=== PATIENT | female | born 1960 | race Caucasian/White ===

== ENCOUNTER 2019-02-17 09:37 | Observation (INO) | payer OTHER ==
[2019-02-17] MEDS ORDERED: Phenergan 25 MG INJ IV PRN (10:40)
[2019-02-17] MEDS ORDERED: Sodium Chloride 0.9% 1000 ML 1,000 ML IV STA (10:40)
--- NOTE | 2019-02-17 10:44 | PCM.HP.ADD ---
Addendum to History & Physical - History & Physical Addendum Addendum to History & Physical: This certifies that the History & Physical in the electronic chart reflects the current health status of the patient. If there are changes in the H&P these changes/exceptions are listed as follows.
[2019-02-17] MEDS: Sodium Chloride 0.9% 1000 ML 1,000 ML IV SCH (11:58)
[2019-02-17] MEDS: ROCEPHIN 1 Gm-D5w 50 ml Bag** 1 G/50 ML IVPB IV SCH (11:58)
--- NOTE | 2019-02-17 12:21 | XRAY ---
Indication: Dizziness and vertigo. Comparison: None PA/lateral chest demonstrates lingula infiltrate/atelectasis. Remaining heart and right lung normal. Bony thorax intact with mild degenerative changes and old right 5 rib fracture.
[2019-02-17] MEDS: TYLENOL 325 MG PO PRN (12:30)
[2019-02-17] MEDS: Zithromax 500 MG/ 250 ML NaCl Premix 500 MG/250 ML IVPB IV SCH (12:31)
[2019-02-17 12:40] LABS: Absolute Neutrophil Ct (ANC) 5.53 (1.4-6.9); BASOPHIL % 0.4 % (0.0-0.4); Basophil (Absolute #) 0.03 (0-0.4); Eosinophil % 0.4 % (0.00-5.0); Eosinophil (Absolute #) 0.03 (0-0.5); Hematocrit 40.8 % (35-47); Hemoglobin 13.8 gm/dl (12.0-16.0); Lymphocyte (Absolute #) 1.39 (1.0-4.6); Lymphocytes % 19.1 % (24.0-44.0); Mean Cell Volume 95.1 fl (78-100); Mean Corpuscular Hemoglobin 32.2 pg (26-32); Mean Corpuscular Hgb Concent. 33.8 g/dl (32-36); Mean Platelet Volume 9.6 fl (6-9.5); Monocyte (Absolute #) 0.29 (0.0-1.3); Neutrophil % 76.1 % (36.0-66.0); Platelet Count 269 K/mm3 (150-450); Red Blood Count 4.29 M/mm3 (4.1-5.4); Red Cell Distribution Width 12.7 % (11.5-14.0); White Blood Count 7.3 K/mm3 (4.0-10.5)
[2019-02-17 12:51] LABS: ALBUMIN 4.6 g/dL (3.5-5.0); ALKALINE PHOSPHATASE 74 U/L (38-126); BLOOD UREA NITROGEN 11 mg/dL (7-17); CHLORIDE 108 mmol/L (98-107); Calcium 10.1 mg/dL (8.4-10.2); Carbon Dioxide 28 mmol/L (22-30); Creatinine 1 0.64 mg/dL (0.52-1.04); Glucose 117 mg/dL (74-106); NT PRO BNP 201 pg/mL (0-900); Potassium 4.1 mmol/L (3.5-5.1); SGOT/AST 23 U/L (14-36); SGPT/ALT 15 U/L (0-35); SODIUM 144 mmol/L (137-145); Total Protein 8.4 g/dL (6.3-8.2)
[2019-02-17] MEDS ORDERED: PROVENTIL 2.5 MG/3 ML NEB IH PRN (14:31)
[2019-02-17] MEDS ORDERED: MEDICATION INTERVENTION PO SCH (14:45)
[2019-02-17] MEDS: ECOTRIN 81 MG PO SCH (15:16)
[2019-02-17] MEDS: Protonix 40MG Tablet PO SCH (15:16)
[2019-02-17] MEDS: VITAMIN D PO SCH (15:16)
[2019-02-17] MEDS: MOTRIN 400 MG PO SCH (15:17)
[2019-02-17] MEDS: Spiriva 18 Mcg/Cap Inhaler IH SCH (17:47)
[2019-02-17 18:01] LABS: Appearance CLEAR (CLEAR); Bilirubin NEGATIVE (NEGATIVE); Blood NEGATIVE Ery/ul (0-5); Epithelial Cells RARE /HPF (FEW); Glucose NEGATIVE (NEGATIVE); Ketones NEGATIVE (NEGATIVE); Leukocyte Esterase NEGATIVE (NEGATIVE); Mucus SLIGHT /HPF (NEGATIVE); Nitrite NEGATIVE (NEGATIVE); Protein,Urine Dip NEGATIVE (Negative); Specific Gravity 1.011 (1.005-1.025); Urobilinogen NEGATIVE mg/dL (0-1)
[2019-02-17] MEDS ORDERED: NON-FORMULARY ITEM (Atorvastatin Calcium 20 MG) PO SCH (22:00)
[2019-02-17] MEDS ORDERED: MELATONIN 10 MG PO SCH (22:00)
[2019-02-17] MEDS ORDERED: Lidoderm Patch 5% TOP SCH (22:00)
[2019-02-17] MEDS ORDERED: ZOCOR 20MG PO SCH (22:00)
[2019-02-17] MEDS: Cymbalta 30 MG Capsule PO SCH (22:33)
[2019-02-17] MEDS: TOPIRAMATE PO SCH (22:34)
[2019-02-17] MEDS: PROVENTIL COMMON CANISTER IH PRN (22:43)
[2019-02-18] MEDS: Sodium Chloride 0.9% 1000 ML 1,000 ML IV SCH (01:33)
[2019-02-18] MEDS: TYLENOL 325 MG PO PRN ×2 (03:26→08:10)
[2019-02-18 07:28] VITALS: BP 146/82
[2019-02-18] MEDS: PROVENTIL COMMON CANISTER IH PRN (07:56)
[2019-02-18] MEDS: Spiriva 18 Mcg/Cap Inhaler IH SCH (07:56)
[2019-02-18] MEDS ORDERED: ANTIVERT 25 MG PO ONE (07:58)
--- NOTE | 2019-02-18 08:10 | PCM.SSS ---
History of Present Illness - Chief Complaint Chief Complaint: dizziness for 2 days History of Present Illness: is a 58 year old female Came to my office with complaining of severe dizziness and feeling of nausea for last 1-2 days. Patient denies any fever or chills. Patient denies any headache. Patient states that when she turned her head she gets extremely dizzy and feels like she is going to throw up. - Review of Systems Constitutional: No Fever, No Chills Eyes: No Symptoms Ears, Nose, & Throat: No Symptoms Respiratory: No Cough, No Short Of Breath Cardiac: No Chest Pain, No Edema, No Syncope Abdominal/Gastrointestinal: No Abdominal Pain, No Nausea, No Vomiting, No Diarrhea Genitourinary Symptoms: No Dysuria Musculoskeletal: No Back Pain, No Neck Pain Skin: No Rash Neurological: Dizziness, No Focal Weakness, No Sensory Changes Psychological: No Symptoms Endocrine: No Symptoms Hematologic/Lymphatic: No Symptoms Immunological/Allergic: No Symptoms Medications & Allergies Home Medications: Home Medication List Albuterol 2.5 mg/3 ml Neb [Proventil 2.5 mg/3 ml Neb] 2.5 mg IH Q4HPRN PRN 02/17/19 [History Confirmed 02/17/19] Albuterol Common Canister [Proventil Common Canister] 2 puff IH Q4HPRN PRN 02/17/19 [History Confirmed 02/17/19] Aspirin [Aspirin EC] 81 mg PO DAILY 02/17/19 [History Confirmed 02/17/19] Atorvastatin Calcium [Lipitor 20MG Tablet] 20 mg PO HS 02/17/19 [History Confirmed 02/17/19] Cholecalciferol (Vitamin D3) [D3-2000] 1 cap PO DAILY 02/17/19 [History Confirmed 02/17/19] Duloxetine HCl 30 mg PO BID 02/17/19 [History Confirmed 02/17/19] Ibuprofen 800 mg PO DAILY 02/17/19 [History Confirmed 02/17/19] Lidocaine 1 patch TOP HS 02/17/19 [History Confirmed 02/17/19] Melatonin 10 mg pe PO HS 02/17/19 [History Confirmed 02/17/19] Omeprazole 40 mg PO DAILY 02/17/19 [History Confirmed 02/17/19] Tiotropium [place] [Spiriva] 1 puff IH DAILY 02/17/19 [History Confirmed ] Topiramate 50 mg PO BID 02/17/19 [History Confirmed 02/17/19] Meclizine HCl 25 mg [Antivert 25 mg] 25 mg PO QID #30 tablet 02/18/19 [Rx] Allergies/Adverse Reactions: Allergies Allergy/AdvReac Type Severity Reaction Status Date / Time Sulfa (Sulfonamide Allergy Verified 02/17/19 10:20 Antibiotics) amoxicillin [From Augmentin] AdvReac Verified 02/17/19 10:20 clavulanic acid AdvReac Verified 02/17/19 10:20 [From Augmentin] - Past Medical History Past Medical History: Yes Neurological History: No Pertinent History ENT History: No Pertinent History Cardiac History: High Cholesterol Respiratory History: Asthma, COPD Endocrine Medical History: Liver Disease Musculoskelatal History: Arthritis GI Medical History: GERD History: No Pertinent History Pyscho-Social History: Anxiety, Depression Reproductive Disorders: Cervical Cancer Comment: 30% heart block. class 3 pap smear cervical CA. cryo negative paps since. colonoscopy 2018: mild inflammation otherwise negative. umbillicul hernia. Hepititis C remission - Female History Are you now?: No - Past Surgical History Past Surgical History: Yes Neuro Surgical History: No Pertinent History Cardiac History: Cardiac Catheterization Respiratory Surgery: No Pertinent History GI Surgical History: No Pertinent History Genitourinary Surgical Hx: No Pertinent History Musculskeletal Surgical Hx: No Pertinent History Female Surgical History: No Pertinent History Other Surgical History: lap cyst removal from uterus. right knee maniscus repair - Social History Smoking Status: Current every day smoker Alcohol: None Drug Use: none - Physical Exam Vital Signs: Vital Signs - 24 hr Temp Pulse Resp BP Pulse Ox 02/18/19 07:27 97.9 F 85 20 146/82 85 L 02/18/19 04:11 98.3 F 87 20 139/79 95 02/17/19 23:34 98.1 F 78 22 166/72 100 02/17/19 22:44 77 18 95 02/17/19 20:00 98.3 F 86 18 135/67 95 02/17/19 17:54 97 02/17/19 17:46 70 18 97 02/17/19 16:00 98.4 F 69 16 165/80 96 02/17/19 12:00 20 02/17/19 11:46 97.7 F 73 20 146/76 97 General Appearance: no apparent distress, alert Neurologic Exam: alert, oriented x 3, cooperative, normal mood/affect, nml cerebellar function, nml station & gait, sensation nml, No motor deficits Eye Exam: PERRL/EOMI, eyes nml inspection Ears, Nose, Throat Exam: normal ENT inspection, TMs normal, pharynx normal, moist mucous membranes Neck Exam: normal inspection, non-tender, supple, full range of motion Respiratory Exam: normal breath sounds, lungs clear, No respiratory distress Cardiovascular Exam: regular rate/rhythm, normal heart sounds, normal peripheral pulses Gastrointestinal/Abdomen Exam: soft, normal bowel sounds, No tenderness, No mass Back Exam: normal inspection, normal range of motion, No CVA tenderness, No vertebral tenderness Extremity Exam: normal inspection, normal range of motion, pelvis stable Skin Exam: normal color, warm, dry, No rash Lymphatic Exam: No adenopathy Results - Labs Lab/Micro Results: Lab Results-Last 24 Hours 02/17/19 02/17/19 02/17/19 Range/Units 10:40 12:15 12:50 WBC 7.3 (4.0-10.5) K/mm3 RBC 4.29 (4.1-5.4) M/mm3 Hgb 13.8 (12.0-16.0) gm/dl Hct 40.8 (35-47) % MCV 95.1 (78-100) fl MCH 32.2 H (26-32) pg MCHC 33.8 (32-36) g/dl RDW 12.7 (11.5-14.0) % Plt Count 269 (150-450) K/mm3 MPV 9.6 H (6-9.5) fl Gran % 76.1 H (36.0-66.0) % Eos # (Auto) 0.03 (0-0.5) Absolute Lymphs (auto) 1.39 (1.0-4.6) Absolute Monos (auto) 0.29 (0.0-1.3) Lymphocytes % 19.1 L (24.0-44.0) % Monocytes % 4.0 (0.0-12.0) % Eosinophils % 0.4 (0.00-5.0) % Basophils % 0.4 (0.0-0.4) % Absolute Granulocytes 5.53 (1.4-6.9) Basophils # 0.03 (0-0.4) Sodium 144 (137-145) mmol/L Potassium 4.1 (3.5-5.1) mmol/L Chloride 108 H (98-107) mmol/L Carbon Dioxide 28 (22-30) mmol/L Anion Gap 12.0 (5-15) MEQ/L BUN 11 (7-17) mg/dL Creatinine 0.64 (0.52-1.04) mg/dL Estimated GFR > 60.0 ML/MIN Glucose 117 H (74-106) mg/dL Calcium 10.1 (8.4-10.2) mg/dL Total Bilirubin 0.70 (0.2-1.3) mg/dL AST 23 (14-36) U/L ALT 15 (0-35) U/L Alkaline Phosphatase 74 (38-126) U/L NT-Pro-B Natriuret Pep 201 (0-900) pg/mL Serum Total Protein 8.4 H (6.3-8.2) g/dL Albumin 4.6 (3.5-5.0) g/dL Urine Color YELLOW (YELLOW) Urine Appearance CLEAR (CLEAR) Urine pH 7.0 (5-6) Ur Specific [place] 1.011 (1.005-1.025) Urine Protein NEGATIVE (Negative) Urine Ketones NEGATIVE (NEGATIVE) Urine Blood NEGATIVE (0-5) Rahul/ul Urine Nitrite NEGATIVE (NEGATIVE) Urine Bilirubin NEGATIVE (NEGATIVE) Urine Urobilinogen NEGATIVE (0-1) mg/dL Ur Leukocyte Esterase NEGATIVE (NEGATIVE) Urine WBC (Auto) NONE (0-5) /HPF Urine RBC (Auto) NONE (0-2) /HPF U Epithel Cells (Auto) RARE (FEW) /HPF Urine Mucus (Auto) SLIGHT (NEGATIVE) /HPF Urine Culture Reflexed NO (NO) Urine Glucose NEGATIVE (NEGATIVE) mg/dL - Radiology Impressions Radiology Exams & Impressions: Radiology Procedures Category Date Time Status CHEST 2 VIEWS (PA AND LAT) Stat Exams 02/17/19 11:41 Completed RAD/CHEST 2 VIEWS (PA AND LAT) Indication: Dizziness and vertigo. Comparison: None PA/lateral chest demonstrates lingula infiltrate/atelectasis. Remaining heart and right lung normal. Bony thorax intact with mild degenerative changes and old right 5 rib fracture. - Other Procedures and Tests Respiratory Therapy 02/17/19 17:46 Respiratory Therapy Assessment DAILY Assessment/Plan (1) Acute viral labyrinthitis of both ears Current Visit: Yes Status: Acute Assessment & Plan: Last Vital Signs Temp 97.9 F 02/18/19 07:27 Pulse 85 02/18/19 07:27 Resp 20 02/18/19 07:27 BP 146/82 02/18/19 07:27 Pulse Ox 85 L 02/18/19 07:27 Allergies Sulfa (Sulfonamide Antibiotics) Allergy (Verified 02/17/19 10:20) unknown amoxicillin [From Augmentin] Adverse Reaction (Verified 02/17/19 10:20) yeast infection clavulanic acid [From Augmentin] Adverse Reaction (Verified 02/17/19 10:20) Active Medications Acetaminophen (Tylenol 325 Mg) 325 mg PO Q4H PRN PRN PRN Reason: PAIN, FEVER, HEADACHE Stop: 03/19/19 10:39 Last Admin: 02/18/19 03:26 Dose: 325 mg Albuterol Sulfate (Proventil 2.5 Mg/3 Ml Neb) 2.5 mg IH Q4HPRN PRN PRN Reason: SHORTNESS OF BREATH/WHEEZING Stop: 03/19/19 14:30 Albuterol Sulfate (Proventil Common Canister) 2 puff IH Q4HPRN PRN PRN Reason: SHORTNESS OF BREATH Stop: 03/19/19 14:30 Last Admin: 02/18/19 07:56 Dose: 2 puff Aspirin (Ecotrin 81 Mg) 81 mg PO DAILY ASIF Stop: 03/19/19 14:59 Last Admin: 02/17/19 15:16 Dose: 81 mg Cholecalciferol (Vitamin D) 2,000 unit PO DAILY ASIF Stop: 03/19/19 14:59 Last Admin: 02/17/19 15:16 Dose: 2,000 unit Duloxetine HCl (Cymbalta 30 Mg Capsule) 30 mg PO BID [facility] Stop: 03/19/19 21:59 Last Admin: 02/17/19 22:33 Dose: 30 mg Azithromycin (Zithromax 500 Mg/ 250 Ml Nacl Premix) 500 mg in 250 mls @ 250 mls /hr IV Q24H10 ASIF Stop: 03/19/19 10:59 Last Admin: 02/17/19 12:31 Dose: 250 mls/hr Ceftriaxone Sodium/Dextrose (Rocephin 1 Gm-D5w 50 Ml Bag) 1 g in 50 mls @ 100 mls/hr IV Q24H10 ASIF Stop: 03/19/19 10:59 Last Admin: 02/17/19 11:58 Dose: 100 mls/hr Sodium Chloride (Sodium Chloride 0.9% 1000 Ml) 1,000 mls @ 100 mls/hr IV .Q10H ASIF Stop: 03/19/19 11:59 Last Admin: 02/18/19 01:33 Dose: 100 mls/hr Ibuprofen (Motrin 400 Mg) 800 mg PO DAILY ASIF Stop: 03/19/19 14:59 Last Admin: 02/17/19 15:17 Dose: 800 mg Lidocaine (Lidoderm Patch 5%) 1 patch TOP ASIF Stop: 03/19/19 21:59 Last Admin: 02/17/19 22:33 Dose: 1 patch Miscellaneous Information (Medication Intervention) 1 each PO .RN TO CHECK ASIF Stop: 03/19/19 14:44 Non-Formulary Medication (Remove Patch Reminder) 1 each TOP QAM [facility] Stop: 03/20/19 09:59 Pantoprazole Sodium (Protonix 40mg Tablet) 40 mg PO DAILY ASIF Stop: 03/19/19 14:59 Last Admin: 02/17/19 15:16 Dose: 40 mg Promethazine HCl (Phenergan 25 Mg Inj) 12.5 mg IV Q6H PRN PRN PRN Reason: NAUSEA/VOMITING Stop: 03/19/19 10:39 Last Admin: 02/17/19 12:07 Dose: 12.5 mg Simvastatin (Zocor 20mg) 20 mg PO HS ASIF Stop: 03/19/19 21:59 Last Admin: 02/17/19 22:34 Dose: 20 mg Tiotropium [place] (Spiriva 18 Mcg/Cap Inhaler) 1 ea IH 0700 ASIF Stop: 03/19/19 14:59 Last Admin: 02/18/19 07:56 Dose: 1 ea Topiramate (Topiramate) 50 mg PO BID ASIF Stop: 03/19/19 21:59 Last Admin: 02/17/19 22:34 Dose: 50 mg Intake & Output 02/17/19 02/18/19 11:59 11:59 Intake Total 5025 Output Total 2075 Balance 2950 Weight 117.8 kg Orders 02/17/19 10:40 Up With Assistance TID Place in Observation ROUTINE Acetaminophen 325 mg [Tylenol 325 mg] 325 mg PO Q4H PRN PRN Promethazine HCl 25 mg Amp [Phenergan 25 MG INJ] 12.5 mg IV Q6H PRN PRN 02/17/19 11:00 Azithromycin 500 mg/250 ml [Zithromax 500 MG/ 250 ML NaCl Premix] 500 mg in 250 ml IV Q24H10 Ceftriaxone 1 GM/50 ML PREMIX* [ROCEPHIN 1 Gm-D5w 50 ml Bag] 1 g in 50 ml IV Q24H10 02/17/19 12:00 NaCl 0.9% 1000 ml [Sodium Chloride 0.9% 1000 ML] 1,000 ml IV 100 mls/hr 02/17/19 14:31 Albuterol 2.5 mg/3 ml Neb [Proventil 2.5 mg/3 ml Neb] 2.5 mg IH Q4HPRN PRN Albuterol Common Canister [Proventil Common Canister] 2 puff IH Q4HPRN PRN 02/17/19 14:45 Medication Intervention 1 each PO .RN TO CHECK 02/17/19 15:00 Aspirin EC 81 mg [Ecotrin 81 mg] 81 mg PO DAILY Cholecalciferol (Vitamin D3) [Vitamin D] 2,000 unit PO DAILY Ibuprofen 400 mg [Motrin 400 mg] 800 mg PO DAILY PANTOPRAZOLE 40 mg Tablet [Protonix 40MG Tablet] 40 mg PO DAILY Tiotropium [place] Inhaler [Spiriva 18 Mcg/Cap Inhaler] 1 ea IH 0700 02/17/19 15:30 Telemetry q4h 02/17/19 17:46 Pulse Oximetry .spot check Respiratory Therapy Assessment DAILY 02/17/19 22:00 Duloxetine HCl 30 mg [Cymbalta 30 MG Capsule] 30 mg PO BID Lidocaine HCl 5% Patch [Lidoderm Patch 5%] 1 patch TOP HS Simvastatin 20Mg [Zocor 20Mg] 20 mg PO HS Topiramate 50 mg PO BID 02/17/19 Lunch Regular Diet 02/18/19 10:00 Remove Patch [Remove Patch Reminder] 1 each TOP QAM Lab Tests 02/17/19 02/17/19 02/17/19 10:40 12:15 12:50 WBC 7.3 RBC 4.29 Hgb 13.8 Hct 40.8 MCV 95.1 MCH 32.2 H MCHC 33.8 RDW 12.7 Plt Count 269 MPV 9.6 H Gran % 76.1 H Eos # (Auto) 0.03 Absolute Lymphs (auto) 1.39 Absolute Monos (auto) 0.29 Lymphocytes % 19.1 L Monocytes % 4.0 Eosinophils % 0.4 Basophils % 0.4 Absolute Granulocytes 5.53 Basophils # 0.03 Sodium 144 Potassium 4.1 Chloride 108 H Carbon Dioxide 28 Anion Gap 12.0 BUN 11 Creatinine 0.64 Estimated GFR > 60.0 Glucose 117 H Calcium 10.1 Total Bilirubin 0.70 AST 23 ALT 15 Alkaline Phosphatase 74 NT-Pro-B Natriuret Pep 201 Serum Total Protein 8.4 H Albumin 4.6 Urine Color YELLOW Urine Appearance CLEAR Urine pH 7.0 Ur Specific [place] 1.011 Urine Protein NEGATIVE Urine Ketones NEGATIVE Urine Blood NEGATIVE Urine Nitrite NEGATIVE Urine Bilirubin NEGATIVE Urine Urobilinogen NEGATIVE Ur Leukocyte Esterase NEGATIVE Urine WBC (Auto) NONE Urine RBC (Auto) NONE U Epithel Cells (Auto) RARE Urine Mucus (Auto) SLIGHT Urine Culture Reflexed NO Urine Glucose NEGATIVE Code(s): H83.03 - LABYRINTHITIS, BILATERAL (2) Vertigo, benign paroxysmal Current Visit: Yes Status: Acute Qualifiers: Laterality: bilateral Qualified Code(s): H81.13 - Benign paroxysmal vertigo , bilateral Assessment & Plan: patient is admitted as observation. All routine lab work came within normal range. Patient was given meclizine, which did help her vertigo symptoms. Patient will be discharged home today with meclizine 25 mg 4 times a day as needed for dizziness. Follow-up in 3-4 days. Code(s): H81.10 - BENIGN PAROXYSMAL VERTIGO, UNSPECIFIED EAR Hospital Summary - Hospital Course Hospital Course: Chief Complaint Diagnosis dizziness Allergies Allergy/AdvReac Type Severity Reaction Status Date / Time Sulfa (Sulfonamide Allergy Verified 02/17/19 10:20 Antibiotics) amoxicillin [From Augmentin] AdvReac Verified 02/17/19 10:20 clavulanic acid AdvReac Verified 02/17/19 10:20 [From Augmentin] Vital Signs (Last 24 hours) Temp Pulse Resp BP Pulse Ox 02/18/19 07:27 97.9 F 85 20 146/82 85 L 02/18/19 04:11 98.3 F 87 20 139/79 95 02/17/19 23:34 98.1 F 78 22 166/72 100 02/17/19 22:44 77 18 95 02/17/19 20:00 98.3 F 86 18 135/67 95 02/17/19 17:54 97 02/17/19 17:46 70 18 97 02/17/19 16:00 98.4 F 69 16 165/80 96 02/17/19 12:00 20 02/17/19 11:46 97.7 F 73 20 146/76 97 Home Medications Medication Instructions Recorded Confirmed Last Taken Type Albuterol 2.5 mg/3 ml Neb 2.5 mg IH Q4HPRN PRN 02/17/19 02/17/19 02/16/19 History [Proventil 2.5 mg/3 ml Neb] Albuterol Common Canister 2 puff IH Q4HPRN PRN 02/17/19 02/17/19 02/16/19 History [Proventil Common Canister] Aspirin [Aspirin EC] 81 mg PO DAILY 02/17/19 02/17/19 02/16/19 History Atorvastatin Calcium [Lipitor 20MG 20 mg PO HS 02/17/19 02/17/19 02/16/19 History Tablet] Cholecalciferol (Vitamin D3) 1 cap PO DAILY 02/17/19 02/17/19 02/16/19 History [D3-2000] Duloxetine HCl 30 mg PO BID 02/17/19 02/17/19 02/16/19 History Ibuprofen 800 mg PO DAILY 02/17/19 02/17/19 02/16/19 History Lidocaine 1 patch TOP HS 02/17/19 02/17/19 02/16/19 History Melatonin 10 mg pe PO HS 02/17/19 02/17/19 02/16/19 History Omeprazole 40 mg PO DAILY 02/17/19 02/17/19 02/16/19 History Tiotropium [place] [Spiriva] 1 puff IH DAILY 02/17/19 02/17/19 02/16/19 History Topiramate 50 mg PO BID 02/17/19 02/17/19 02/16/19 History Current Medications Generic Name Dose Route Start Last Admin Trade Name Freq PRN Reason Stop Dose Admin Acetaminophen 325 mg 02/17/19 10:40 02/18/19 03:26 Tylenol 325 Mg PO 03/19/19 10:39 325 mg Q4H PRN PRN Administration PAIN, FEVER, HEADACHE Albuterol Sulfate 2.5 mg 02/17/19 14:31 Proventil 2.5 Mg/3 Ml Neb IH 03/19/19 14:30 Q4HPRN PRN SHORTNESS OF BREATH/WHEEZING Albuterol Sulfate 2 puff 02/17/19 14:31 02/18/19 07:56 Proventil Common Canister IH 03/19/19 14:30 2 puff Q4HPRN PRN Administration SHORTNESS OF BREATH Aspirin 81 mg 02/17/19 15:00 02/17/19 15:16 Ecotrin 81 Mg PO 03/19/19 14:59 81 mg DAILY ASIF Administration Cholecalciferol 2,000 unit 02/17/19 15:00 02/17/19 15:16 Vitamin D PO 03/19/19 14:59 2,000 unit DAILY ASIF Administration Duloxetine HCl 30 mg 02/17/19 22:00 02/17/19 22:33 Cymbalta 30 Mg Capsule PO 03/19/19 21:59 30 mg BID ASIF Administration Azithromycin 500 mg in 250 mls @ 250 mls/hr 02/17/19 11:00 02/17/19 12:31 Zithromax 500 Mg/ 250 Ml Nacl Premix IV 03/19/19 10:59 250 mls/hr Q24H10 ASIF Administration Ceftriaxone Sodium/Dextrose 1 g in 50 mls @ 100 mls/hr 02/17/19 11:00 11:58 Rocephin 1 Gm-D5w 50 Ml Bag IV 03/19/19 10:59 100 mls/hr Q24H10 ASIF Administration Sodium Chloride 1,000 mls @ 100 mls/hr 02/17/19 12:00 02/18/19 01:33 Sodium Chloride 0.9% 1000 Ml IV 03/19/19 11:59 100 mls/hr .Q10H ASIF Administration Ibuprofen 800 mg 02/17/19 15:00 02/17/19 15:17 Motrin 400 Mg PO 03/19/19 14:59 800 mg DAILY ASIF Administration Lidocaine 1 patch 02/17/19 22:00 02/17/19 22:33 Lidoderm Patch 5% TOP 03/19/19 21:59 1 patch HS ASIF Administration Miscellaneous Information 1 each 02/17/19 14:45 Medication Intervention PO 03/19/19 14:44 .RN TO CHECK ASIF Non-Formulary Medication 1 each 02/18/19 10:00 Remove Patch Reminder TOP 03/20/19 09:59 QAM ASIF Pantoprazole Sodium 40 mg 02/17/19 15:00 02/17/19 15:16 Protonix 40mg Tablet PO 03/19/19 14:59 40 mg DAILY ASIF Administration Promethazine HCl 12.5 mg 02/17/19 10:40 02/17/19 12:07 Phenergan 25 Mg Inj IV 03/19/19 10:39 12.5 mg Q6H PRN PRN Administration NAUSEA/VOMITING Simvastatin 20 mg 02/17/19 22:00 02/17/19 22:34 Zocor 20mg PO 03/19/19 21:59 20 mg HS ASIF Administration Tiotropium [place] 1 ea 02/17/19 15:00 02/18/19 07:56 Spiriva 18 Mcg/Cap Inhaler IH 03/19/19 14:59 1 ea 0700 ASIF Administration Topiramate 50 mg 02/17/19 22:00 02/17/19 22:34 Topiramate PO 03/19/19 21:59 50 mg BID ASIF Administration Discontinued Medications Generic Name Dose Route Start Last Admin Trade Name Freq PRN Reason Stop Dose Admin Sodium Chloride 1,000 mls @ 999 mls/hr 02/17/19 10:40 02/17/19 11:58 Sodium Chloride 0.9% 1000 Ml IV 02/17/19 11:40 999 mls/hr .Q1H1M STA Administration Meclizine HCl 50 mg 02/18/19 07:58 Antivert 25 Mg PO 02/18/19 07:59 ONCE ONE Intake & Output (Last 24 hours) 02/15/19 02/16/19 02/17/19 02/18/19 11:59 11:59 11:59 11:59 Intake Total 5025 Output Total 2075 Balance 2950 Weight 117.8 kg Laboratory Results (Last 24 hours) 02/17/19 02/17/19 02/17/19 12:50 12:15 10:40 WBC 7.3 RBC 4.29 Hgb 13.8 Hct 40.8 MCV 95.1 MCH 32.2 H MCHC 33.8 RDW 12.7 Plt Count 269 MPV 9.6 H Gran % 76.1 H Eos # (Auto) 0.03 Absolute Lymphs (auto) 1.39 Absolute Monos (auto) 0.29 Lymphocytes % 19.1 L Monocytes % 4.0 Eosinophils % 0.4 Basophils % 0.4 Absolute Granulocytes 5.53 Basophils # 0.03 Sodium 144 Potassium 4.1 Chloride 108 H Carbon Dioxide 28 Anion Gap 12.0 BUN 11 Creatinine 0.64 Estimated GFR > 60.0 Glucose 117 H Calcium 10.1 Total Bilirubin 0.70 AST 23 ALT 15 Alkaline Phosphatase 74 NT-Pro-B Natriuret Pep 201 Serum Total Protein 8.4 H Albumin 4.6 Urine Color YELLOW Urine Appearance CLEAR Urine pH 7.0 Ur Specific [place] 1.011 Urine Protein NEGATIVE Urine Ketones NEGATIVE Urine Blood NEGATIVE Urine Nitrite NEGATIVE Urine Bilirubin NEGATIVE Urine Urobilinogen NEGATIVE Ur Leukocyte Esterase NEGATIVE Urine WBC (Auto) NONE Urine RBC (Auto) NONE U Epithel Cells (Auto) RARE Urine Mucus (Auto) SLIGHT Urine Culture Reflexed NO Urine Glucose NEGATIVE Orders (Last 24 hours) Category Date Time Status Up With Assistance TID Activity 02/17/19 10:[address] in Observation ROUTINE Care 02/17/19 10:40 Active Telemetry q4h Care 02/17/19 15:30 Active Regular Diet Diet 02/17/19 Lunch Active CHEST 2 VIEWS (PA AND LAT) Stat Exams 02/17/19 11:41 Completed CBC W DIFF Stat Lab 02/17/19 10:40 Completed CMP Stat Lab 02/17/19 12:15 Completed NT PRO BNP Stat Lab 02/17/19 12:15 Completed UA W/RFX UR CULTURE Stat Lab 02/17/19 12:50 Completed Acetaminophen 325 mg [Tylenol 325 mg] Med 02/17/19 10:40 Active 325 mg PO Q4H PRN PRN Albuterol 2.5 mg/3 ml Neb [Proventil 2.5 mg/3 ml Neb Med 02/17/19 14:31 Active ] 2.5 mg IH Q4HPRN PRN Albuterol Common Canister [Proventil Common Canister Med 02/17/19 14:31 Active ] 2 puff IH Q4HPRN PRN Aspirin EC 81 mg [Ecotrin 81 mg] Med 02/17/19 15:00 Active 81 mg PO DAILY Azithromycin 500 mg/250 ml [Zithromax 500 MG/ 250 ML Med 02/17/19 11:00 Active NaCl Premix] 500 mg in 250 ml IV Q24H10 Ceftriaxone 1 GM/50 ML PREMIX* [ROCEPHIN 1 Gm-D5w 50 ml Med 02/17/19 11:00 Active Bag] 1 g in 50 ml IV Q24H10 Cholecalciferol (Vitamin D3) [Vitamin D] Med 02/17/19 15:00 Active 2,000 unit PO DAILY Duloxetine HCl 30 mg [Cymbalta 30 MG Capsule] Med 02/17/19 22:00 Active 30 mg PO BID Ibuprofen 400 mg [Motrin 400 mg] Med 02/17/19 15:00 Active 800 mg PO DAILY Lidocaine HCl 5% Patch [Lidoderm Patch 5%] Med 02/17/19 22:00 Active 1 patch TOP HS Meclizine HCl 25 mg [Antivert 25 mg] Med 02/18/19 07:58 Discontinued 50 mg PO ONCE ONE Medication Intervention Med 02/17/19 14:45 Active 1 each PO .RN TO CHECK NaCl 0.9% 1000 ml [Sodium Chloride 0.9% 1000 ML] 1,000 Med 02/17/19 12:00 Active ml IV 100 mls/hr NaCl 0.9% 1000 ml [Sodium Chloride 0.9% 1000 ML] 1,000 Med 02/17/19 10:40 Discontinued ml IV 999 mls/hr PANTOPRAZOLE 40 mg Tablet [Protonix 40MG Tablet] Med 02/17/19 15:00 Active 40 mg PO DAILY Promethazine HCl 25 mg Amp [Phenergan 25 MG INJ] Med 02/17/19 10:40 Active 12.5 mg IV Q6H PRN PRN Remove Patch [Remove Patch Reminder] Med 02/18/19 10:00 Active 1 each TOP QAM Simvastatin 20Mg [Zocor 20Mg] Med 02/17/19 22:00 Active 20 mg PO HS Tiotropium [place] Inhaler [Spiriva 18 Mcg/Cap Med 02/17/19 15:00 Active Inhaler] 1 ea IH 0700 Topiramate Med 02/17/19 22:00 Active 50 mg PO BID EKG STAT RT 02/17/19 10:40 Completed Pulse Oximetry .spot check RT 02/17/19 17:46 Active RT Screen per Nursing Assess ONCE RT 02/17/19 11:41 Completed Respiratory Therapy Assessment DAILY RT 02/17/19 17:46 Active Smoking Cessation Education ONCE RT 02/17/19 11:41 Completed - Vitals & Intake/Output Vital Signs: Vital Signs Temperature 97.9 F 02/18/19 07:27 Pulse Rate 85 02/18/19 07:27 Respiratory Rate 20 02/18/19 07:27 Blood Pressure 146/82 02/18/19 07:27 O2 Sat by Pulse Oximetry 85 L 02/18/19 07:27 Intake & Output: Intake & Output 02/15/19 02/16/19 02/17/19 02/18/19 11:59 11:59 11:59 11:59 Intake Total 5025 Output Total 0575 Balance 2950 Weight 117.8 kg - Lab Result Diagrams: 02/17/19 10:40 02/17/19 12:15 Lab Results-Last 24 Hrs: Lab Results-Last 24 Hours 02/17/19 02/17/19 02/17/19 Range/Units 10:40 12:15 12:50 WBC 7.3 (4.0-10.5) K/mm3 RBC 4.29 (4.1-5.4) M/mm3 Hgb 13.8 (12.0-16.0) gm/dl Hct 40.8 (35-47) % MCV 95.1 (78-100) fl MCH 32.2 H (26-32) pg MCHC 33.8 (32-36) g/dl RDW 12.7 (11.5-14.0) % Plt Count 269 (150-450) K/mm3 MPV 9.6 H (6-9.5) fl Gran % 76.1 H (36.0-66.0) % Eos # (Auto) 0.03 (0-0.5) Absolute Lymphs (auto) 1.39 (1.0-4.6) Absolute Monos (auto) 0.29 (0.0-1.3) Lymphocytes % 19.1 L (24.0-44.0) % Monocytes % 4.0 (0.0-12.0) % Eosinophils % 0.4 (0.00-5.0) % Basophils % 0.4 (0.0-0.4) % Absolute Granulocytes 5.53 (1.4-6.9) Basophils # 0.03 (0-0.4) Sodium 144 (137-145) mmol/L Potassium 4.1 (3.5-5.1) mmol/L Chloride 108 H (98-107) mmol/L Carbon Dioxide 28 (22-30) mmol/L Anion Gap 12.0 (5-15) MEQ/L BUN 11 (7-17) mg/dL Creatinine 0.64 (0.52-1.04) mg/dL Estimated GFR > 60.0 ML/MIN Glucose 117 H (74-106) mg/dL Calcium 10.1 (8.4-10.2) mg/dL Total Bilirubin 0.70 (0.2-1.3) mg/dL AST 23 (14-36) U/L ALT 15 (0-35) U/L Alkaline Phosphatase 74 (38-126) U/L NT-Pro-B Natriuret Pep 201 (0-900) pg/mL Serum Total Protein 8.4 H (6.3-8.2) g/dL Albumin 4.6 (3.5-5.0) g/dL Urine Color YELLOW (YELLOW) Urine Appearance CLEAR (CLEAR) Urine pH 7.0 (5-6) Ur Specific [place] 1.011 (1.005-1.025) Urine Protein NEGATIVE (Negative) Urine Ketones NEGATIVE (NEGATIVE) Urine Blood NEGATIVE (0-5) Rahul/ul Urine Nitrite NEGATIVE (NEGATIVE) Urine Bilirubin NEGATIVE (NEGATIVE) Urine Urobilinogen NEGATIVE (0-1) mg/dL Ur Leukocyte Esterase NEGATIVE (NEGATIVE) Urine WBC (Auto) NONE (0-5) /HPF Urine RBC (Auto) NONE (0-2) /HPF U Epithel Cells (Auto) RARE (FEW) /HPF Urine Mucus (Auto) SLIGHT (NEGATIVE) /HPF Urine Culture Reflexed NO (NO) Urine Glucose NEGATIVE (NEGATIVE) mg/dL - Radiology Exams Ordered Rad Exams-Entire Visit: Radiology Procedures Category Date Time Status CHEST 2 VIEWS (PA AND LAT) Stat Exams 02/17/19 11:41 Completed - Procedures and Test Procedures and Tests throughout Hospitalization: Therapy Orders & Screens 02/17/19 10:40 EKG STAT Comment: 02/17/19 11:41 RT Screen per Nursing Assess ONCE Comment: Protocol Order Physician Instructions: Greater than 3 points order RT Admission Screen Reason For Exam: Triggered on Admission Diagnosis: dizziness Diagnosis: dizziness Pneumonia: No Home O2: No Asthma: Yes CHF: No Home CPAP/BIPAP: No Home Nebs/MDI: Yes Total Points: 9 Smoking Cessation Education ONCE Comment: Diagnosis: dizziness Smoking Status: Current every day smoker Have you smoked in the past 12 months: Yes 02/17/19 17:46 Respiratory Therapy Assessment DAILY Comment: Diagnosis: dizziness - Discharge Discharge Date: 02/18/19 Disposition: Home, Self-Care Condition: Stable Prescriptions: New Meclizine HCl 25 mg [Antivert 25 mg] 25 mg PO QID #30 tablet Continue Topiramate 50 mg PO BID Tiotropium [place] [Spiriva] 1 puff IH DAILY Omeprazole 40 mg PO DAILY Melatonin 10 mg pe PO HS Lidocaine 1 patch TOP HS Ibuprofen 800 mg PO DAILY Cholecalciferol (Vitamin D3) [D3-2000] 1 cap PO DAILY Aspirin [Aspirin EC] 81 mg PO DAILY Albuterol Common Canister [Proventil Common Canister] 2 puff IH Q4HPRN PRN PRN Reason: Shortness Of Breath Albuterol 2.5 mg/3 ml Neb [Proventil 2.5 mg/3 ml Neb] 2.5 mg IH Q4HPRN PRN PRN Reason: Shortness Of Breath/Wheezing Duloxetine HCl 30 mg PO BID Atorvastatin Calcium [Lipitor 20MG Tablet] 20 mg PO HS Instructions: Vertigo (a Type of Dizziness), Labyrinthitis, Vertigo (a Type of Dizziness) (DC), Vestibular Exercises Follow up with: TIMOTHY REEDER MD [Primary Care Provider] - 02/27/19 11:00 am (at [facility]) Forms: Work/School Release Form
[2019-02-18] MEDS ORDERED: CHOLECALCIFEROL PO SCH (10:00)
[2019-02-18 10:54] VITALS: PULSE 89; O2SAT 97
[2019-02-18] MEDS: MOTRIN 400 MG PO SCH (10:54)
[2019-02-18] MEDS: Protonix 40MG Tablet PO SCH (10:54)
[2019-02-18] MEDS: VITAMIN D PO SCH (10:54)
[2019-02-18] MEDS: ECOTRIN 81 MG PO SCH (10:54)
[2019-02-18] MEDS: Cymbalta 30 MG Capsule PO SCH (10:54)
[2019-02-18] MEDS: Zithromax 500 MG/ 250 ML NaCl Premix 500 MG/250 ML IVPB IV SCH (12:51)
[2019-02-18] MEDS: ROCEPHIN 1 Gm-D5w 50 ml Bag** 1 G/50 ML IVPB IV SCH (12:51)
[2019-02-18] MEDS: TOPIRAMATE PO SCH (12:53)
== END 2019-02-18 11:59 | disposition home or self-care (01) ==
LOC: MED SURG 10:03
PROVIDERS: ADMIT General Practice; ATTEND General Practice
DX: H83.03 Labyrinthitis, bilateral (principal); H81.13 Benign paroxysmal vertigo, bilateral; Z79.899 Other long term (current) drug therapy; J44.9 Chronic obstructive pulmonary disease, unspecified; E78.00 Pure hypercholesterolemia, unspecified
CPT/HCPCS: 36415; 71046; 80053; 81001; 83880; 85025; 93005; 93268; 94640; 94760; G0378; J0456; J0696; J2550; A9270-GY

== ENCOUNTER 2019-05-10 18:27 | Emergency (ER) | payer OTHER ==
[2019-05-10] MEDS ORDERED: Sodium Chloride 0.9% 1000 ML 1,000 ML IV STA (19:41)
[2019-05-10] MEDS ORDERED: Sodium Chloride 0.9% 1000 ML 1,000 ML ONE (19:52)
[2019-05-10 20:19] LABS: Appearance SLIGHTLY CLOUDY (CLEAR); Bacteria RARE /HPF (NEGATIVE); Bilirubin SMALL (NEGATIVE); Blood NEGATIVE Ery/ul (0-5); Epithelial Cells RARE /HPF (FEW); Glucose NEGATIVE (NEGATIVE); Ketones TRACE (NEGATIVE); Leukocyte Esterase TRACE (NEGATIVE); Mucus SLIGHT /HPF (NEGATIVE); Nitrite NEGATIVE (NEGATIVE); Protein,Urine Dip 30 (Negative); RBC 0-2 /HPF (0-2); Specific Gravity 1.021 (1.005-1.025); Urobilinogen 2 mg/dL (0-1)
[2019-05-10] MEDS ORDERED: MOTRIN 600 MG PO ONE (20:42)
[2019-05-10] MEDS ORDERED: MOTRIN 600 MG ONE (20:43)
[2019-05-10 20:56] LABS: INFLUENZA A NEGATIVE (NEGATIVE)
[2019-05-10 20:57] LABS: INFLUENZA B POSITIVE (NEGATIVE); RESPIRATORY SYNCTIAL VIRUS NEGATIVE (Negative)
[2019-05-10 21:58] VITALS: BP 135/83; PULSE 98; O2SAT 98
--- NOTE | 2019-05-10 21:58 | ERPHSYRPT ---
- History of Present Illness Time Seen by Provider: 05/10/19 18:45 Source: patient Exam Limitations: no limitations Patient Subjective Stated Complaint: STATES FEVER, COUGH, BODY ACHES SINCE YESTERDAY. STATES SON HAS HAD SAME SYMPTOMS FOR A FEW DAYS. Triage Nursing Assessment: AMBULATED TO ROOM PER SELF. SKIN W/D, COLOR NORMAL, RESP NONLABORED. OCCASIONAL DRY COUGH NOTED. Physician History: Patient with flu like symptoms. She admits to flu exposure. 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 Associated Symptoms: cough, muscle aches, No chest pain, No diaphoresis, No headache, No rash, No shortness of breath, No sore throat International travel in last 2 weeks: No Allergies/Adverse Reactions: Sulfa (Sulfonamide Antibiotics) Allergy (Verified 05/10/19 18:47) unknown amoxicillin [From Augmentin] Adverse Reaction (Verified 05/10/19 18:47) yeast infection clavulanic acid [From Augmentin] Adverse Reaction (Verified 05/10/19 18:47) Home Medications: Albuterol 2.5 mg/3 ml Neb [Proventil 2.5 mg/3 ml Neb] 2.5 mg IH Q4HPRN PRN 02/17/19 [History] Albuterol Common Canister [Proventil Common Canister] 2 puff IH Q4HPRN PRN 02/17/19 [History] Aspirin [Aspirin EC] 81 mg PO DAILY 02/17/19 [History] Atorvastatin Calcium [Lipitor 20MG Tablet] 20 mg PO HS 02/17/19 [History] Cholecalciferol (Vitamin D3) [D3-2000] 1 cap PO DAILY 02/17/19 [History] Duloxetine HCl 30 mg PO BID 02/17/19 [History] Ibuprofen 800 mg PO DAILY 02/17/19 [History] Melatonin 10 mg pe PO HSPRN PRN 02/17/19 [History] Omeprazole 40 mg PO DAILY 02/17/19 [History] Tiotropium [place] [Spiriva] 1 puff IH DAILY 02/17/19 [History] Topiramate 50 mg PO BID 02/17/19 [History] Meclizine HCl 25 mg [Antivert 25 mg] 25 mg PO QIDPRN PRN 05/10/19 [History ] Hx Tetanus, Diphtheria Vaccination/Date Given: No Hx Influenza Vaccination/Date Given: No Hx Pneumococcal Vaccination/Date Given: Yes - Review of Systems Constitutional: No Fever, No Chills Eyes: No Symptoms Ears, Nose, & Throat: No Symptoms Respiratory: No Cough, No Dyspnea Cardiac: No Chest Pain, No Edema, No Syncope Abdominal/Gastrointestinal: No Abdominal Pain, No Nausea, No Vomiting, No Diarrhea Genitourinary Symptoms: No Dysuria Musculoskeletal: No Back Pain, No Neck Pain Skin: No Rash Neurological: No Dizziness, No Focal Weakness, No Sensory Changes Psychological: No Symptoms Endocrine: No Symptoms All Other Systems: Reviewed and Negative - Past Medical History Pertinent Past Medical History: Yes Neurological History: No Pertinent History ENT History: No Pertinent History Cardiac History: High Cholesterol Respiratory History: Asthma, COPD Endocrine Medical History: Liver Disease Musculoskeletal History: Arthritis GI Medical History: GERD History: No Pertinent History Psycho-Social History: Anxiety, Depression Female Reproductive Disorders: Cervical Cancer Other Medical History: 30% heart block. class 3 pap smear cervical CA. cryo negative paps since. colonoscopy 2018: mild inflammation otherwise negative. umbillicul hernia. Hepititis C remission - Past Surgical History Past Surgical History: Yes Neuro Surgical History: No Pertinent History Cardiac: Cardiac Catheterization Respiratory: No Pertinent History Gastrointestinal: No Pertinent History Genitourinary: No Pertinent History Musculoskeletal: No Pertinent History Female Surgical History: No Pertinent History Other Surgical History: lap cyst removal from uterus. right knee maniscus repair - Social History Smoking Status: Current every day smoker How long have you smoked: 22 Exposure to second hand smoke: Yes Drug Use: none Patient Lives Alone: No - Female History Hx Now: No - Nursing Vital Signs Nursing Vital Signs: Initial Vital Signs Temperature 98.5 F 05/10/19 18:37 Pulse Rate 91 H 05/10/19 18:37 Respiratory Rate 18 05/10/19 18:37 Blood Pressure 110/76 05/10/19 18:37 O2 Sat by Pulse Oximetry 98 05/10/19 18:37 Pain Scale Pain Intensity 0 - Physical Exam General Appearance: no apparent distress, alert Eye Exam: PERRL/EOMI ENT Exam: normal ENT inspection, No pharyngeal erythema, No tonsillar exudate Neck Exam: supple, full range of motion, No meningismus Respiratory Exam: normal breath sounds, lungs clear, no respiratory distress Cardiovascular/Chest Exam: normal heart sounds, regular rate/rhythm, No murmur, No edema Gastrointestinal/Abdominal Exam: soft, non tender, no distention Extremity Exam: non-tender, normal range of motion, normal inspection, normal capillary refill Neurologic Exam: alert, oriented x 3, cooperative, 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, normal mood/affect, sensation nml, No motor deficits Skin Exam: normal color, warm, dry, No rash Lymphatic: No adenopathy SpO2 Interpretation: normal SpO2: 98 O2 Delivery: Room Air - Radiology Exams Chest X-ray Interpretation: Interpreted by me, No Pneumonia, No Pneumothorax, Nml Heart Size, Nml Soft Tissues, Non-displaced Fracture Ordered Tests: Active Orders 24 hr Category Date Time Status CHEST 1 VIEW (PORTABLE) Stat Exams 05/10/19 19:43 Taken CULTURE,URINE Stat Lab 05/10/19 19:58 Received UA W/RFX UR CULTURE Stat Lab 05/10/19 19:58 Completed Medication Summary Discontinued Medications Generic Name Dose Route Start Last Admin Trade Name Kyra PRN Reason Stop Dose Admin Sodium Chloride 1,000 mls @ 999 mls/hr 05/10/19 19:41 05/10/19 21:27 Sodium Chloride 0.9% 1000 Ml IV 05/10/19 20:41 Infused .Q1H1M STA Infusion Sodium Chloride Confirm 05/10/19 19:52 Sodium Chloride 0.9% 1000 Ml Administered 05/10/19 19:53 Dose 1,000 mls @ ud .ROUTE .STK-MED ONE Ibuprofen 600 mg 05/10/19 20:42 05/10/19 20:45 Motrin 600 Mg PO 05/10/19 20:43 600 mg STAT ONE Administration Ibuprofen Confirm 05/10/19 20:43 Motrin 600 Mg Administered 05/10/19 20:44 Dose 600 mg .ROUTE .STK-MED ONE Lab/Rad Data: Laboratory Results 05/10/19 05/10/19 Range/Units 19:59 19:58 Urine Color ENA (YELLOW) Urine Appearance SLIGHTLY CLOUDY (CLEAR) Urine pH 5.0 (5-6) Ur Specific [place] 1.021 (1.005-1.025) Urine Protein 30 (Negative) Urine Ketones TRACE (NEGATIVE) Urine Blood NEGATIVE (0-5) Rahul/ul Urine Nitrite NEGATIVE (NEGATIVE) Urine Bilirubin SMALL (NEGATIVE) Urine Urobilinogen 2 (0-1) mg/dL Ur Leukocyte Esterase TRACE (NEGATIVE) Urine WBC (Auto) 11-15 (0-5) /HPF Urine RBC (Auto) 0-2 (0-2) /HPF U Hyaline Cast (Auto) 6-10 (0-2) /LPF U Epithel Cells (Auto) RARE (FEW) /HPF Urine Bacteria (Auto) RARE (NEGATIVE) /HPF Unidentified Crystals 2-5 (NEGATIVE) /HPF Other Casts (Auto) NEGATIVE (NEGATIVE) /LPF Urine Mucus (Auto) SLIGHT (NEGATIVE) /HPF Urine Culture Reflexed YES (NO) Urine Glucose NEGATIVE (NEGATIVE) mg/dL Influenza Type A Ag NEGATIVE (NEGATIVE) Influenza Type B Ag POSITIVE (NEGATIVE) RSV (PCR) NEGATIVE (Negative) - Progress Progress Note: 05/10/19 21:57 Patient reassessed. She feels much better. IVF infused. Influenza B +. Patient requesting discharge. Counseled pt/family regarding: lab results, diagnosis, rad results - Departure Departure Disposition: Home Clinical Impression: Influenza B Condition: Good Critical Care Time: No Referrals: TIMOTHY REEDER MD [Primary Care Provider] - Additional Instructions: Discharge/Care Plan GERARDO LEE was seen on 05/10/19 in the Emergency Room. The patient was counseled regarding Diagnosis,Lab results, Imaging studies, need for follow up and when to return to the Emergency Room. Prescriptions given: Discharge Note I have spoken with the patient and/or caregivers. I have explained the patient' s condition, diagnosis and treatment plan based on the information available to me at this time. I have answered the patient's and/or caregiver's questions and addressed any concerns. The patient and/or caregivers have as good understanding of the patient's diagnosis, condition and treatment plan as can be expected at this point. The vital signs have been stable. The patient's condition is stable and appropriate for discharge from the emergency department. The patient will pursue further outpatient evaluation with the primary care physician or other designated or consulting physician as outlined in the discharge instructions. The patient and/or caregivers are agreeable to this plan of care and follow-up instructions have been explained in detail. The patient and/or caregivers have received these instruction. The patient/and or caregivers are aware that any significant change in condition or worsening of symptoms should prompt an immediate return to this or the closest emergency department or call 911.
--- NOTE | 2019-05-11 09:14 | XRAY ---
Indication: Fever and cough. Comparison: February 17, 2019. Portable chest demonstrates normal heart and lungs with a few incidental calcified granulomas. Bony thorax intact again with mild degenerative changes and old right 5 rib fracture. No new/acute findings.
== END 2019-05-10 22:00 | disposition home or self-care (01) ==
LOC: ED 18:27
DX: J11.1 Influenza due to unidentified influenza virus with other respiratory manifestations (principal)
CPT/HCPCS: 36000; 71045; 81001; 87077; 87086; 87186; 87631; 96360; 99284; A9270-GY

== ENCOUNTER 2020-01-05 19:45 | Emergency (ER) | payer OTHER ==
--- NOTE | 2020-01-05 19:55 | ERPHSYRPT ---
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 Patient has history of degenerative disc disease in her cervical spine and has known compression fractures in her lumbar spine. She also has spurs in her cervical spine. Patient complains of headache. She is brought in by the ambulance service with a c-collar in place. She did not lose consciousness. She takes only ibuprofen for pain. She does not have any narcotic pain medicine at home. Patient denies abdominal pain and she denies chest pain. Occurred: just prior to arrival Reason for Fall: tripped (Rubber mat on floor) Injuries/Pain Location: head, neck, back, upper, lower, middle Loss of Consciousness: no loss of consciousness Quality: aching Severity of Pain-Max: moderate Severity of Pain-Current: moderate Modifying Factors: Improves With: movement Associated Symptoms (Fall): back pain, headache, muscle spasms, neck pain, No abdominal pain, No confusion, No chest pain, No dizziness, No extremity injury Allergies/Adverse Reactions: Sulfa (Sulfonamide Antibiotics) Allergy (Verified 01/05/20 19:48) unknown amoxicillin [From Augmentin] Adverse Reaction (Verified 01/05/20 19:48) yeast infection clavulanic acid [From Augmentin] Adverse Reaction (Verified 01/05/20 19:48) Home Medications: Albuterol 2.5 mg/3 ml Neb [Proventil 2.5 mg/3 ml Neb] 2.5 mg IH Q4HPRN PRN 02/17/19 [History] Albuterol Common Canister [Ventolin Common Canister] 2 puff IH Q4HPRN PRN 02/17/19 [History] Aspirin [Aspirin EC] 81 mg PO DAILY 02/17/19 [History] Atorvastatin Calcium [Lipitor 20MG Tablet] 20 mg PO HS 02/17/19 [History] Cholecalciferol (Vitamin D3) [D3-2000] 1 cap PO DAILY 02/17/19 [History] Duloxetine HCl 30 mg PO BID 02/17/19 [History] Ibuprofen 800 mg PO DAILY 02/17/19 [History] Melatonin 10 mg pe PO HSPRN PRN 02/17/19 [History] Omeprazole 40 mg PO DAILY 02/17/19 [History] Tiotropium [place] [Spiriva] 1 puff IH DAILY 02/17/19 [History] Topiramate 50 mg PO BID 02/17/19 [History] Meclizine HCl 25 mg [Antivert 25 mg] 25 mg PO QIDPRN PRN 05/10/19 [History] Pregabalin 1.5 cap PO DAILY 01/05/20 [History] Hx Tetanus, Diphtheria Vaccination/Date Given: No Hx Influenza Vaccination/Date Given: No Hx Pneumococcal Vaccination/Date Given: Yes Travel Risk - International Travel Have you traveled outside of the country in past 3 weeks: No - Coronavirus Screening Are you exhibiting any of the following symptoms?: No Close contact with a COVID-19 positive Pt in past 14-21 Days: No - Review of Systems Constitutional: No Symptoms Eyes: No Symptoms Ears, Nose, & Throat: No Symptoms Respiratory: No Symptoms Cardiac: No Symptoms Abdominal/Gastrointestinal: No Symptoms Genitourinary Symptoms: No Symptoms Musculoskeletal: Back Pain, Neck Pain, Fall, Injury Skin: No Symptoms Neurological: No Symptoms Psychological: No Symptoms Endocrine: No Symptoms Hematologic/Lymphatic: No Symptoms Immunological/Allergic: No Symptoms All Other Systems: Reviewed and Negative - Past Medical History Pertinent Past Medical History: Yes Neurological History: No Pertinent History ENT History: No Pertinent History Cardiac History: High Cholesterol Respiratory History: Asthma, COPD Endocrine Medical History: Liver Disease Musculoskeletal History: Arthritis GI Medical History: GERD History: No Pertinent History Psycho-Social History: Anxiety, Depression Female Reproductive Disorders: Cervical Cancer Other Medical History: 30% heart block. class 3 pap smear cervical CA. cryo negative paps since. colonoscopy 2018: mild inflammation otherwise negative. umbillicul hernia. Hepititis C remission - Past Surgical History Past Surgical History: Yes Neuro Surgical History: No Pertinent History Cardiac: Cardiac Catheterization Respiratory: No Pertinent History Gastrointestinal: No Pertinent History Genitourinary: No Pertinent History Musculoskeletal: No Pertinent History Female Surgical History: No Pertinent History Other Surgical History: lap cyst removal from uterus. right knee maniscus repair - Social History Smoking Status: Current every day smoker How long have you smoked: 22 Exposure to second hand smoke: Yes Drug Use: none Patient Lives Alone: No - Nursing Vital Signs Nursing Vital Signs: Initial Vital Signs Temperature 97.6 F 01/05/20 19:45 Pulse Rate 70 01/05/20 19:45 Respiratory Rate 18 01/05/20 19:45 Blood Pressure 120/75 01/05/20 19:45 O2 Sat by Pulse Oximetry 98 01/05/20 19:45 Pain Scale Pain Intensity 4 - Chris Coma Score Best Eye Response (Chris): (4) open spontaneously Best Verbal Response ([place]): (5) oriented Best Motor Response (Chris): (6) obeys commands [place] Total: 15 - Physical Exam General Appearance: no apparent distress, alert, anxiety, obese Head Injury: no evidence of injury Eye Exam: PERRL/EOMI, eyes nml inspection ENT Exam: airway nml, nml ext.inspection Neck Exam: trachea midline, normal alignment, c-collar in place Respiratory/Chest Exam: normal breath sounds, No chest tenderness, No respiratory distress, No ecchymosis, No crepitus Cardiovascular Exam: normal heart sounds, regular rate/rhythm Gastrointestinal Exam: soft, normal bowel sounds, No tenderness Rectal Exam: not done Back Exam: muscle spasm Extremity Exam: normal inspection, normal range of motion, pelvis stable Neurologic Exam: alert, oriented x 3, 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, 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, normal mood/affect, sensation nml Skin Exam: normal color, warm, dry SpO2 Interpretation: normal O2 Delivery: Room Air - Course Nursing assessment & vital signs reviewed: Yes Ordered Tests: Active Orders 24 hr Category Date Time Status CERVICAL SPINE WO CONTRAST [CT] Stat Exams 01/05/20 20:14 Completed HEAD WITHOUT CONTRAST [CT] Stat Exams 01/05/20 20:14 Completed LUMBAR SPINE W/O [CT] Stat Exams 01/05/20 20:14 Completed THORACIC SPINE W/O CONTRAST [CT] Stat Exams 01/05/20 20:14 Completed - Progress Progress: improved, pain not gone completely, re-examined Progress Note: 01/05/20 21:37 CAT scan of the head without contrast shows no acute intracranial abnormality CAT scan of the thoracic spine shows no acute fracture or subluxation. There is incidental finding of an old right fifth rib fracture. CAT scan of the cervical spine shows no acute fracture or subluxation. CAT scan of the lumbar spine shows a new nondisplaced bilateral L2 transverse process fracture. Counseled pt/family regarding: diagnosis, need for follow-up, rad results - Departure Departure Disposition: Home Clinical Impression: Lumbar transverse process fracture Condition: Stable Critical Care Time: No Referrals: TIMOTHY REEDER MD [Primary Care Provider] - Additional Instructions: Continue taking ibuprofen as you are prescribed. Follow-up with your primary care physician for further management of pain issues. Prescriptions: Oxycodone HCl/Acetaminophen [Percocet 5-325 mg Tablet] 1 each PO Q8H PRN PRN #9 tablet MDD 3 PRN Reason: Pain Cyclobenzaprine HCl 10 mg [Cyclobenzaprine 10 MG] 10 mg PO TID #10 tablet
--- NOTE | 2020-01-05 21:21 | XRAY ---
Indication: Headache following fall. Multiple contiguous axial images obtained through the cervical spine. Sagittal and coronal reformatted images obtained. Comparison: None Axial images negative for acute fracture, suspicious bony lesions, or spinal canal stenosis. Minimal C5-C6 degenerative endplate spurring. Mild/moderate multilevel bilateral degenerative facet hypertrophy. Sagittal and coronal reformatted images demonstrates lordotic straightening, positional versus paraspinal spasm. Minimal C5-C6 disc space narrowing. No acute compression fracture, subluxation, or jumped facet. Normal appearing craniocervical junction. Visualized noncontrasted soft tissues demonstrates mild carotid calcifications bilaterally. Impression: 1. Cervical lordotic straightening, positional versus paraspinal spasm. 2. Negative acute fracture/subluxation. 3. Multilevel degenerative changes.
--- NOTE | 2020-01-05 21:24 | XRAY ---
Indication: Headache following fall. Multiple contiguous axial images obtained through the head without contrast. Comparison: None Age-appropriate global atrophy and minimal periventricular degenerative micro-ischemia bilaterally. No acute intracranial hemorrhage, abnormal extra-axial fluid collection, or mass effect. Fourth ventricle is midline without hydrocephalus. Bony calvarium intact. Visualized paranasal sinuses and mastoid air cells are clear. Impression: Nonacute senile brain.
--- NOTE | 2020-01-05 21:25 | XRAY ---
Indication: Pain following fall. Multiple contiguous axial images obtained through the thoracic spine. Sagittal and coronal reformatted images obtained. Comparison: None Axial images negative for acute fracture, suspicious bony lesions, or spinal canal stenosis. Minimal/mild multilevel anterior endplate spurring and old right 5 rib fracture. Sagittal and coronal reformatted images demonstrates alignment. No acute compression fracture or subluxation. Visualized noncontrasted soft tissues demonstrates bilateral lung dependent atelectasis, minimal aortic calcifications, and small hiatal hernia. Impression: 1. Negative acute fracture/subluxation. 2. Incidental old right 5 rib fracture, multilevel degenerative changes and small hiatal hernia.
--- NOTE | 2020-01-05 21:31 | XRAY ---
Indication: Pain following fall. Multiple contiguous axial images obtained through the lumbar spine. Sagittal and coronal reformatted images obtained. Comparison: CT abdomen/pelvis November 20, 2019. Axial demonstrates new nondisplaced bilateral L2 transverse process fractures. No other acute fracture, suspicious bony lesions, or spinal canal stenosis. New L1-L2 and L4-L5 degenerative vacuum disc phenomena. Stable bilateral L4-S1 degenerative facet arthropathy. Sagittal and coronal reformatted images demonstrates alignment with vertebral body heights/disc spaces maintained. No acute compression fracture or subluxation. Visualized noncontrasted soft tissues again demonstrates mild aortoiliac calcifications. Impression: 1. New nondisplaced bilateral L2 transverse process fractures. 2. Again incidental multilevel degenerative changes.
[2020-01-05] MEDS ORDERED: ZOFRAN ODT 4 MG PO ONE (21:42)
[2020-01-05] MEDS ORDERED: Hydromorphone 1 mg/ml Injection IM ONE (21:43)
[2020-01-05] MEDS ORDERED: Ativan 2 MG/1 ML VIAL IM ONE (21:44)
[2020-01-05] MEDS ORDERED: PERCOCET TABLET 5/325MG PO STA (21:45)
[2020-01-05] MEDS ORDERED: PERCOCET TABLET 5/325MG ONE (22:02)
[2020-01-05] MEDS ORDERED: ZOFRAN ODT 4 MG ONE (22:02)
[2020-01-05] MEDS ORDERED: Ativan 2 MG/1 ML VIAL ONE (22:02)
[2020-01-05] MEDS ORDERED: Hydromorphone 1 mg/ml Injection ONE (22:03)
[2020-01-05 22:07] VITALS: O2SAT 98
[2020-01-05 23:27] VITALS: BP 152/70; PULSE 80
== END 2020-01-05 23:20 | disposition home or self-care (01) ==
LOC: ED 19:45
DX: S32.028A Other fracture of second lumbar vertebra, initial encounter for closed fracture (principal); W01.198A Fall on same level from slipping, tripping and stumbling with subsequent striking against other object, initial encounter; Y92.524 Gas station as the place of occurrence of the external cause; Y99.0 Civilian activity done for income or pay; R51 Headache; M54.9 Dorsalgia, unspecified; R25.2 Cramp and spasm; M54.2 Cervicalgia; Z79.899 Other long term (current) drug therapy; E78.00 Pure hypercholesterolemia, unspecified; J44.9 Chronic obstructive pulmonary disease, unspecified
CPT/HCPCS: 70450; 72125; 72128; 72131; 96372; 99284; J1170; J2060; Q0162; A9270-GY

== ENCOUNTER 2020-02-12 12:25 | Day surgery (SDC) | payer OTHER ==
--- NOTE | 2020-02-12 09:17 | HP ---
DATE OF SURGERY: 02/12/2020 HISTORY OF PRESENT ILLNESS: The patient is a 59 year old had stage III Pap smear cervical cancer, history of hepatitis C in the past. She had some pain in the left mid upper abdomen. Prior CT scan did not show an obvious abdominal wall defect in that area. She does have hernia intermittent umbilical area ventral hernia. Given her symptoms of aches and pains, she desires repair of hernia and at the same time laparoscopic evaluation of the area in question where she is having some pain but no hernia noted there. If hernia noted would repair hernia there. If no hernia noted there could consider possible abdominal wall exploration to see if she has a lipoma or other etiology there. PAST MEDICAL HISTORY: Hepatitis C. Chronic liver disease. Fibrosis. Heart disease. Chronic obstructive pulmonary disease. Asthma. PAST SURGICAL HISTORY: Right knee surgery in the past. MEDICATIONS: Aspirin, atorvastatin, duloxetine, ibuprofen, omeprazole, topiramate, vitamin D3, melatonin, Pregabalin, Spiriva inhaler, Albuterol sulfate inhaler, Albuterol solution. Lidocaine patch. Nicotine patch. ALLERGIES: SULFA. AMOXICILLIN. FAMILY HISTORY: Negative in regards to this problem. SOCIAL HISTORY: One pack per day smoker, denies alcohol abuse. REVIEW OF SYSTEMS: Fourteen systems reviewed as noted per admission assessment multiple medical problems noted above. PHYSICAL EXAMINATION: GENERAL: A chronically ill female in no acute distress. HEENT: Sclerae nonicteric. NECK: No JVD. CHEST: Equal excursion, breath sounds symmetrical. No audible wheeze currently. CVS: Regular rate and rhythm. ABDOMEN: Soft. She had ventral hernia in her mid-abdomen. She has some tenderness over towards the left. No obvious hernia was noted on that side. EXTREMITIES: No cyanosis. NEURO: Alert, moving extremities symmetrically. PSYCH: Appropriate mood and affect. IMPRESSION: A 59 year old with multiple medical problems chronic heart, liver and lung disease. She does have ventral hernia in mid-abdomen umbilical area. I feel she would benefit from repair laparoscopically and evaluation of her left abdominal wall where she is having some aches and pains. General risk of repair of hernia. General risk of bleeding or infection, risk of trocar injury or hernia, risk of bowel, bladder, blood vessel injury, risk of adhesion, scar formation or obstruction, risk of mesh infection possibly requiring removal, risk of hematoma or seroma formation particularly given her liver disease, risk of ascites leaking from the incisional area, general risk of anesthesia, deep venous thrombosis, pulmonary embolism, pneumonia, risk of cardiopulmonary event. She also understands if remote risk of mesh fracture or failure possibly creatinine issue with the viscera or other issues possibly requiring other procedures, possible need for open procedure. She understands regarding her abdominal wall her aches, pains in left abdominal wall area will evaluate laparoscopically to see if there is any occult hernia. If not, may consider open exploration of abdominal wall to determine if she has any lipoma or other etiology there. General risk of bleeding or infection, risk of wound dehiscence possibly requiring packing, general risk of anesthesia, deep venous thrombosis, pulmonary embolism, pneumonia, risk of cardiopulmonary event. She understands and agrees to the planned procedure and will proceed with outpatient laparoscopic repair of incarcerated ventral hernia with mesh possible open, possible abdominal wall exploration pending operative findings.
[~2020-02-12 12:25] MED LIST: CEFAZOLIN 2 GM-D5W BAG** 2 GM/50 ML ML IV ONE; Lactated Ringers 1,000 ML IV ONE; Sensorcaine 0.25% 10 ML ONE
[2020-02-12] MEDS ORDERED: Lactated Ringers 1,000 ML IV SCH (12:30)
[2020-02-12 13:26] LABS: Absolute Neutrophil Ct (ANC) 3.69 (1.4-6.9); BASOPHIL % 0.5 % (0.0-0.4); Basophil (Absolute #) 0.03 (0-0.4); Eosinophil (Absolute #) 0.06 (0-0.5); Hematocrit 37.6 % (35-47); Hemoglobin 12.3 gm/dl (12.0-16.0); Lymphocyte (Absolute #) 1.68 (1.0-4.6); Lymphocytes % 28.9 % (24.0-44.0); Mean Cell Volume 99.5 fl (78-100); Mean Corpuscular Hemoglobin 32.5 pg (26-32); Mean Corpuscular Hgb Concent. 32.7 g/dl (32-36); Mean Platelet Volume 9.3 fl (7.5-11.0); Monocyte (Absolute #) 0.35 (0.0-1.3); Neutrophil % 63.6 % (36.0-66.0); Platelet Count 238 K/mm3 (150-450); Red Blood Count 3.78 M/mm3 (4.1-5.4); Red Cell Distribution Width 12.7 % (11.5-14.0); White Blood Count 5.8 K/mm3 (4.0-10.5)
[2020-02-12 13:43] LABS: ALBUMIN 4.2 g/dL (3.5-5.0); ALKALINE PHOSPHATASE 67 U/L (38-126); ANION GAP 6.9 MEQ/L (5-15); BLOOD UREA NITROGEN 14 mg/dL (7-17); CHLORIDE 108 mmol/L (98-107); Calcium 9.5 mg/dL (8.4-10.2); Carbon Dioxide 28 mmol/L (22-30); Creatinine 1 0.71 mg/dL (0.52-1.04); EST GLOMERULAR FILTRATION RATE > 60.0 ML/MIN; Glucose 111 mg/dL (74-106); Potassium 4.2 mmol/L (3.5-5.1); SGOT/AST 19 U/L (14-36); SGPT/ALT 15 U/L (0-35); SODIUM 139 mmol/L (137-145); Total Protein 7.4 g/dL (6.3-8.2)
[2020-02-12] MEDS ORDERED: Versed 2 MG/2 ML Injection ONE (15:43)
[2020-02-12] MEDS ORDERED: SUBLIMAZE 250 MCG/5 ML ONE (15:43)
[2020-02-12] MEDS ORDERED: Zemuron 100 MG/10 ML ONE ×2 (15:43→16:53)
[2020-02-12] MEDS ORDERED: DIPRIVAN 200 MG/20 ML IV ONE (15:43)
[2020-02-12] MEDS ORDERED: BRIDION 200MG/2ML IV ONE (16:58)
[2020-02-12] MEDS ORDERED: BREVIBLOC 100 MG/10 ML IV ONE (17:38)
[2020-02-12] MEDS ORDERED: Hydromorphone 1 mg/ml Injection ONE (17:43)
[2020-02-12] MEDS ORDERED: SUBLIMAZE 100 MCG/2 ML ONE (17:43)
[2020-02-12] MEDS ORDERED: Zofran 4 MG/2 ML VIAL ONE (18:14)
[2020-02-12 19:39] VITALS: O2SAT 93
[2020-02-12 19:53] VITALS: BP 145/77; PULSE 65
[2020-02-12 21:01] LABS: Appearance CLEAR (CLEAR); Bilirubin NEGATIVE (NEGATIVE); Blood NEGATIVE Ery/ul (0-5); Glucose NEGATIVE (NEGATIVE); Ketones NEGATIVE (NEGATIVE); Leukocyte Esterase NEGATIVE (NEGATIVE); Mucus SLIGHT /HPF (NEGATIVE); Nitrite NEGATIVE (NEGATIVE); Protein,Urine Dip NEGATIVE (Negative); Specific Gravity 1.012 (1.005-1.025); Urobilinogen NEGATIVE mg/dL (0-1)
--- NOTE | 2020-02-13 13:01 | OP ---
SURGERY DATE/TIME: 02/12/2020 1538 PREOPERATIVE DIAGNOSES: 1) Incarcerated ventral hernia. 2) Left abdominal pain. POSTOPERATIVE DIAGNOSES: 1) Incarcerated ventral hernia. 2) Lipomatous density left abdominal wall in area she is having her abdominal pain (no evidence of ventral hernia under this area). PROCEDURES: 1) Laparoscopic repair of incarcerated ventral hernia with mesh. 2) Left abdominal wall exploration with excisional biopsy of 8 cm lipomatous density. SURGEON: Dr. yAo Valente. ANESTHESIA: General. ESTIMATED BLOOD LOSS: Minimal. INDICATIONS: As noted above. Risks and benefits explained in detail and not limited to and consent obtained. She did have mid abdominal incarcerated ventral hernia. She had some left abdominal pain. It was felt she needed laparoscopy for evaluation of left abdominal wall and repair of incarcerated ventral hernia in the same setting. Risks and benefits explained in detail but not limited to, consent obtained. The site where she is having pain was carefully marked in the preoperative holding area. DESCRIPTION OF PROCEDURE AND FINDINGS: She is taken to the operating room. General anesthesia induced. Abdomen prepped and draped in usual sterile fashion. After official time out and no disagreement with planned procedure, a transverse incision made supraumbilical area. Fascia grasped, pulled upwards. Veress needle inserted and tested with saline. Pneumoperitoneum accomplished, opening pressure 0 to 15. A 5 mm bladeless port and camera were inserted in the left upper quadrant without difficulty this was later switched to 12 mm port to allow for mesh placement. Another left mid abdomen 5 mm port and left lower quadrant 5 mm ports were placed under direct vision of the camera. Careful takedown of the preperitoneal fat pad allowing access to incarcerated ventral hernia. It had incarcerated preperitoneal fat this was carefully reduced. It should be noted that directly underlying where the patient's complaint of her pain had been marked on the abdominal wall, there was no evidence of ventral hernia in this area, just her mid abdomen incarcerated ventral hernia was in need of repair. Therefore it was felt size [address] mesh is the most appropriate size. After placing four quadrant stay sutures, the strap was cut. It was carefully rolled and inserted into the abdomen with Vicryl suture placed in the center to pull it up in the center defect. Prior to being sewn, the fascia defect is closed with 0 Vicryl. Once this was accomplished the suture passer was used pulling the Vicryl suture up in the midline centering the mesh through four separate stab wounds. The top area Ethibond was placed inferior as it was close to where abdominal wall dissection was going to happen with Vicryl suture was used. Transfixing transfascially fixating the mesh in four quadrants. Once this was accomplished, waited a couple of minutes. The mesh was tacked flat with capture pulling around the edges with a couple centimeter near the true fascial defects with the mesh lying flat to avoid any risk of seroma formation. The preperitoneal fat pad peritoneum allowed to go back up against the mesh with good position with tension-free fashion with suture and tacking with the pressure turned down to 8. Good hemostasis noted. Pneumoperitoneum decompressed. Ports removed. The skin incisions in the port sites and stab wound with #1 Vicryl used to bring the fascia back to midline this was closed with 4-0 Vicryl and in the stab wounds Steri-Strips were placed. At this point attention is then turned as I had discussed with the patient exploration of abdominal wall. Dissection carried through the left lower quadrant incision. Dissection carried down around what seemed to be a dense lipomatous tissue or lipoma density surrounding subcutaneous fat this was dissected down to the level of the fascia. There is no evidence of any visible or palpable hernia in this area. Specimen passed off. It measured about 8 cm. Two little, small perforated pulsatile seen and was closed with LigaSure and the other one with 3-0 Vicryl suture ligature. Good hemostasis noted. Copious amount of irrigation irrigating clear. Deep subcu closed with 3-0 Vicryl, superficial subcu closed with 3-0 Vicryl, skin closed with 4-0 Vicryl. Steri-Strips and sterile dressing applied. The patient transferred to the recovery room in stable condition. There was no family available to discuss the findings with at this time. Whether this is lipomatous density is causing her pain or she has some other back problems, other fibromyalgia issues or other musculoskeletal issues is unclear.
== END 2020-02-12 20:00 | disposition home or self-care (01) ==
LOC: SDC 12:25
PROVIDERS: ATTEND Surgery
DX: K43.6 Other and unspecified ventral hernia with obstruction, without gangrene (principal); D17.1 Benign lipomatous neoplasm of skin and subcutaneous tissue of trunk; R10.9 Unspecified abdominal pain; J44.9 Chronic obstructive pulmonary disease, unspecified; I25.10 Atherosclerotic heart disease of native coronary artery without angina pectoris; K21.9 Gastro-esophageal reflux disease without esophagitis; Z85.41 Personal history of malignant neoplasm of cervix uteri; Z86.19 Personal history of other infectious and parasitic diseases; Z79.899 Other long term (current) drug therapy
CPT/HCPCS: 11406; 36415; 49653; 80053; 81001; 85025; 87086; C1781; 88304; J0690; J1170; J2250; J2405; J2704; J3010; L0625

== ENCOUNTER 2023-06-24 14:01 | Emergency (ER) | payer MEDICARE ==
[2023-06-24 14:35] VITALS: BP 115/56; TEMP 97.5
--- NOTE | 2023-06-24 14:55 | ERPHSYRPT ---
- History of Present Illness Time Seen by Provider: 06/24/23 14:04 Source: patient, family Exam Limitations: no limitations Patient Subjective Stated Complaint: Swelling Triage Nursing Assessment: Patient ambulated back to ED and transferred self to bed. Patient A+O X 3. Patient's skin pink, warm and dry. Patient complains of increased swelling to BLE, SOB, chest pain and and right pelvic/hip pain 8/10. Patient's BLE noted to have 3+ pitting edema to BLE. Patient states she has had a 20 pound weight gain in 2 weeks. Lungs noted to be clear a/p gayatri. Patient also complains of right hip/pelvic pain from a fall. Physician History: 62-year-old female with history of tobacco abuse, COPD, coronary artery disease, hypertension presented in the ER with complaints of bilateral lower extremity swelling and almost 30 pounds weight gain in the last 2-1/2 months. Patient reports almost 10 pound weight gain last week. Patient reports tightness in the legs and also congestion in the chest with minimal productive cough and occasionally having some chest discomfort. Patient reports she fell and hit her knee and right hip few months ago and still have pain. Has chronic dyspnea on exertion which is lately getting worse. Also reports subjective feeling of fever and chills lately. Allergies/Adverse Reactions: Sulfa (Sulfonamide Antibiotics) Allergy (Verified 06/24/23 14:17) unknown, "mom said" amoxicillin [From Augmentin] Adverse Reaction (Intermediate, Verified 06/24/23 14:17) yeast infection clavulanic acid [From Augmentin] Adverse Reaction (Verified 06/24/23 14:17) Itching states "had a bad yeast infection and just never wants it again" Home Medications: Albuterol 2.5 mg/3 ml Neb [Proventil 2.5 mg/3 ml Neb] 2.5 mg IH Q4HPRN PRN 02/17/19 [History] Albuterol Common Canister [Ventolin Common Canister] 2 puff IH Q4HPRN PRN 02/17/19 [History] Aspirin [Aspirin EC] 81 mg PO DAILY 02/17/19 [History] Atorvastatin Calcium [Lipitor 20MG Tablet] 40 mg PO HS 02/17/19 [History] Cholecalciferol (Vitamin D3) [D3-2000] 1 cap PO DAILY 02/17/19 [History] Melatonin 10 mg pe PO HSPRN PRN 02/17/19 [History] Omeprazole 40 mg PO DAILY 02/17/19 [History] Tiotropium [place] [Spiriva Handihaler] 1 puff IH DAILY 02/17/19 [History] Pregabalin 1.5 cap PO BID 01/05/20 [History] Lidocaine [Lidocaine Pain Relief] 1 each TP DAILY 01/31/20 [History] Nabumetone [Relafen] 500 mg PO BID 01/31/20 [History] Hx Tetanus, Diphtheria Vaccination/Date Given: No Hx Influenza Vaccination/Date Given: No Hx Pneumococcal Vaccination/Date Given: Yes Immunizations Up to Date: Yes Travel Risk - International Travel Have you traveled outside of the country in past 3 weeks: No - Coronavirus Screening Are you exhibiting any of the following symptoms?: No Close contact with a COVID-19 positive Pt in past 14-21 Days: No - Vaccine Status Have you recieved a Covid-19 vaccination: No - Review of Systems Constitutional: Fever, Chills, Fatigue, Weakness Eyes: No Symptoms Ears, Nose, & Throat: No Symptoms Respiratory: Cough, Dyspnea, Dyspnea on Exertion (OLMEDO), Wheezing Cardiac: Edema Abdominal/Gastrointestinal: No Symptoms, Appetite Changes Musculoskeletal: Arthralgias Skin: No Symptoms Neurological: No Symptoms Psychological: No Symptoms Hematologic/Lymphatic: No Symptoms Immunological/Allergic: No Symptoms - Past Medical History Pertinent Past Medical History: Yes Neurological History: No Pertinent History ENT History: No Pertinent History Cardiac History: High Cholesterol Respiratory History: Asthma, COPD Endocrine Medical History: Liver Disease Musculoskeletal History: Arthritis GI Medical History: GERD History: No Pertinent History Psycho-Social History: Anxiety, Depression Female Reproductive Disorders: Cervical Cancer Other Medical History: 30% heart block. class 3 pap smear cervical CA. cryo negative paps since. colonoscopy 2018: mild inflammation otherwise negative. umbillicul hernia. Hepititis C remission - Past Surgical History Past Surgical History: Yes Neuro Surgical History: No Pertinent History Cardiac: Cardiac Catheterization Respiratory: No Pertinent History Gastrointestinal: No Pertinent History Genitourinary: No Pertinent History Musculoskeletal: No Pertinent History Female Surgical History: No Pertinent History Other Surgical History: lap cyst removal from uterus. right knee maniscus repair - Social History Smoking Status: Current every day smoker How long have you smoked: 22 Exposure to second hand smoke: Yes Drug Use: none Patient Lives Alone: No - Nursing Vital Signs Nursing Vital Signs: Initial Vital Signs Temperature 97.5 F 06/24/23 14:20 Pulse Rate 74 06/24/23 14:20 Respiratory Rate 25 H 06/24/23 14:20 Blood Pressure 115/56 06/24/23 14:20 O2 Sat by Pulse Oximetry 98 06/24/23 14:20 Pain Scale Pain Intensity 8 - Physical Exam General Appearance: no apparent distress, alert Eye Exam: PERRL/EOMI Ears, Nose, Throat Exam: hearing grossly normal, normal ENT inspection Neck Exam: normal inspection, non-tender, supple, full range of motion Respiratory Exam: diminished breath sounds, wheezing, No respiratory distress, No accessory muscle use Cardiovascular/Chest Exam: normal heart sounds, regular rate/rhythm, edema (N onpitting) Abdominal/Gastrointestinal Exam: soft, No tenderness Extremity Exam: non-tender, normal range of motion Neurologic Exam: alert, oriented x 3, cooperative, ampoule filler II-XII nml as tested Skin Exam: normal color SpO2 Interpretation: normal SpO2: 98 O2 Delivery: Room Air - Course EKG Interpreted by Me: RATE (63), Sinus Rhythm, NORMAL AXIS, NORMAL INTERVALS, NORMAL QRS Ordered Tests: Active Orders 24 hr Category Date Time Status 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 Care 06/24/23 14:51 Completed EKG-ER Only STAT Care 06/24/23 14:50 Completed IV Insertion STAT Care 06/24/23 14:50 Completed CHEST 1 VIEW (PORTABLE) Stat Exams 06/24/23 14:50 Completed CBC W DIFF Stat Lab 06/24/23 14:55 Completed CMP Stat Lab 06/24/23 14:55 Completed Lactic Acid Stat Lab 06/24/23 15:07 Completed MAGNESIUM Stat Lab 06/24/23 14:55 Completed NT PRO BNPII Stat Lab 06/24/23 14:55 Completed TROPONIN Q4H Lab 06/24/23 14:55 Completed Respiratory Therapy Assessment DAILY RT 06/24/23 15:15 Completed Medication Summary Discontinued Medications Generic Name Dose Route Start Last Admin Trade Name Freq PRN Reason Stop Dose Admin Albuterol/Ipratropium 3 ml 06/24/23 14:50 06/24/23 15:11 Ipratropium/Albuterol Sulfate 3 Ml Ampul.Neb IH 06/24/23 14:51 3 ml STAT ONE Administration Albuterol/Ipratropium Confirm 06/24/23 15:09 Ipratropium/Albuterol Sulfate 3 Ml Ampul.Neb Administered 06/24/23 15:10 Dose 3 ml IH .STK-MED ONE Furosemide 20 mg 06/24/23 17:07 06/24/23 17:25 Furosemide 20 Mg Tablet PO 06/24/23 17:08 20 mg ONCE STA Administration Lab/Rad Data: Laboratory Result Diagrams 06/24/23 14:55 06/24/23 14:55 Laboratory Results 06/24/23 06/24/23 06/24/23 Range/Units 15:07 14:58 14:55 WBC (4.0-10.5) x10^3/uL RBC (4.1-5.4) x10^6/uL Hgb (12.0-16.0) g/dL Hct (35-47) % MCV (78-100) fL MCH (26-32) pg MCHC (32-36) g/dL RDW (11.5-14.0) % Plt Count (150-450) x10^3/uL MPV (7.5-11.0) fL Gran % (36.0-66.0) % Immature Gran % (Auto) (0.00-0.4) % Nucleat RBC Rel Count (0.00-0.1) % Eos # (Auto) (0-0.5) x10^3/uL Immature Gran # (Auto) (0.00-0.03) x10^3u/L Absolute Lymphs (auto) (1.0-4.6) x10^3/uL Absolute Monos (auto) (0.0-1.3) x10^3/uL Absolute Nucleated RBC (0.00-0.01) x10^3u/L Lymphocytes % (24.0-44.0) % Monocytes % (0.0-12.0) % Eosinophils % (0.00-5.0) % Basophils % (0.0-0.4) % Absolute Granulocytes (1.4-6.9) x10^3/uL Basophils # (0-0.4) x10^3/uL Sodium (135-145) mmol/L Potassium (3.5-5.1) mmol/L Chloride (98-107) mmol/L Carbon Dioxide (22-30) mmol/L Anion Gap (5-15) MEQ/L BUN (7-17) mg/dL Creatinine (0.52-1.04) mg/dL Estimated GFR ML/MIN Glucose (74-106) mg/dL Lactic Acid 1.1 (0.4-2.0) Calcium (8.4-10.2) mg/dL Magnesium (1.6-2.3) mg/dL Total Bilirubin (0.2-1.3) mg/dL AST (14-36) U/L ALT (0-35) U/L Alkaline Phosphatase (38-126) U/L Troponin I < 0.012 (0.000-0.034) ng/mL NT-Pro-B Natriuret Pep (<300) pg/mL Serum Total Protein (6.3-8.2) g/dL Albumin (3.5-5.0) g/dL Influenza Type A Ag NEGATIVE (NEGATIVE) Influenza Type B Ag NEGATIVE (NEGATIVE) RSV (PCR) NEGATIVE (NEGATIVE) SARS-CoV-2 (PCR) NEGATIVE (NEGATIVE) 06/24/23 06/24/23 Range/Units 14:55 14:55 WBC 5.0 (4.0-10.5) x10^3/uL RBC 3.82 L (4.1-5.4) x10^6/uL Hgb 12.2 (12.0-16.0) g/dL Hct 37.8 (35-47) % MCV 99.0 (78-100) fL MCH 31.9 (26-32) pg MCHC 32.3 (32-36) g/dL RDW 12.9 (11.5-14.0) % Plt Count 243 (150-450) x10^3/uL MPV 9.9 (7.5-11.0) fL Gran % 51.7 (36.0-66.0) % Immature Gran % (Auto) 0.2 (0.00-0.4) % Nucleat RBC Rel Count 0.0 (0.00-0.1) % Eos # (Auto) 0.05 (0-0.5) x10^3/uL Immature Gran # (Auto) 0.01 (0.00-0.03) x10^3u/L Absolute Lymphs (auto) 1.84 (1.0-4.6) x10^3/uL Absolute Monos (auto) 0.47 (0.0-1.3) x10^3/uL Absolute Nucleated RBC 0.00 (0.00-0.01) x10^3u/L Lymphocytes % 36.7 (24.0-44.0) % Monocytes % 9.4 (0.0-12.0) % Eosinophils % 1.0 (0.00-5.0) % Basophils % 1.0 (0.0-0.4) % Absolute Granulocytes 2.60 (1.4-6.9) x10^3/uL Basophils # 0.05 (0-0.4) x10^3/uL Sodium 142 (135-145) mmol/L Potassium 4.0 (3.5-5.1) mmol/L Chloride 107 (98-107) mmol/L Carbon Dioxide 29 (22-30) mmol/L Anion Gap 9.7 (5-15) MEQ/L BUN 13 (7-17) mg/dL Creatinine 0.56 (0.52-1.04) mg/dL Estimated GFR 103.8 ML/MIN Glucose 82 (74-106) mg/dL Lactic Acid (0.4-2.0) Calcium 9.0 (8.4-10.2) mg/dL Magnesium 2.1 (1.6-2.3) mg/dL Total Bilirubin 0.60 (0.2-1.3) mg/dL AST 21 (14-36) U/L ALT 16 (0-35) U/L Alkaline Phosphatase 70 (38-126) U/L Troponin I (0.000-0.034) ng/mL NT-Pro-B Natriuret Pep 329 (<300) pg/mL Serum Total Protein 6.6 (6.3-8.2) g/dL Albumin 4.0 (3.5-5.0) g/dL Influenza Type A Ag (NEGATIVE) Influenza Type B Ag (NEGATIVE) RSV (PCR) (NEGATIVE) SARS-CoV-2 (PCR) (NEGATIVE) - Progress Progress: re-examined, unchanged Air Movement: good Progress Note: 06/24/23 17:08 62-year-old is evaluated in the ER for diffuse swelling of lower extremity, weight gain lately with some dyspnea on exertion. Patient has a history of COPD with tobacco abuse and had some wheezing. She is given DuoNeb. On reevaluation she is feeling better. EKG is sinus rhythm with no acute ischemic changes and negative troponins. Patient has a normal white count, fairly un remarkable chemistries. Chest x-ray negative for any acute cardiopulmonary findings. I believe patient's lower extremity swelling she is going towards developing CHF although her BNP is normal. I believe patient needs further evaluation with at least echocardiogram. She is on room air around 96%, not in any distress. I have given her oral dose of Lasix and will continue with Lasix to go home for few days in the meanwhile patient has appointment with primary care and they will discuss about continuation of Lasix. Also recommended compression stockings and low-salt diet. Discussed signs symptoms of worsening needing return to ER which she seems understanding. Stable for discharge. Blood Culture(s) Obtained: No Antibiotics given: No Counseled pt/family regarding: lab results, diagnosis, need for follow-up, rad results, smoking cessation Medical Desision Making - Independent Historian Additional History obtained from: Spouse - Diagnostic Testing Diagnostic test were ordered, analyzed, and reviewed by me: Yes Radiological Interpretation: Reviewed by me - Risk of complications The pt has a mod risk of morbidity or mortality based on: Need for prescription drug management - Departure Departure Disposition: Home Clinical Impression: Edema, COPD (chronic obstructive pulmonary disease) Condition: Stable Critical Care Time: No Referrals: TIMOTHY REEDER MD [Primary Care Provider] - Follow up with PCP 1 day Instructions: Chronic Obstructive Pulmonary Disease, Dependent Edema (DC) Additional Instructions: Continue with your inhaler/nebulizer as recommended. Take low-salt diet. Regular exercise/weight loss. Follow-up with primary care for reevaluation and may need echocardiogram or further evaluation with cardiology. Return to ER for worsening of swelling/difficulty breathing/chest pain/palpitations or fever chills etc. Prescriptions: Furosemide 20 mg [Lasix 20 mg] 20 mg PO BID #10 tablet
[2023-06-24 15:03] LABS: Basophil (Absolute #) 0.05 x10^3/uL (0-0.4); Eosinophil (Absolute #) 0.05 x10^3/uL (0-0.5); Hematocrit 37.8 % (35-47); Hemoglobin 12.2 g/dL (12.0-16.0); IMMATURE GRAN # 0.01 x10^3u/L (0.00-0.03); IMMATURE GRAN % 0.2 % (0.00-0.4); Lymphocyte (Absolute #) 1.84 x10^3/uL (1.0-4.6); Lymphocytes % 36.7 % (24.0-44.0); Mean Corpuscular Hemoglobin 31.9 pg (26-32); Mean Corpuscular Hgb Concent. 32.3 g/dL (32-36); Mean Platelet Volume 9.9 fL (7.5-11.0); Monocyte (Absolute #) 0.47 x10^3/uL (0.0-1.3); Monocytes % 9.4 % (0.0-12.0); Neutrophil % 51.7 % (36.0-66.0); Platelet Count 243 x10^3/uL (150-450); Red Blood Count 3.82 x10^6/uL (4.1-5.4); Red Cell Distribution Width 12.9 % (11.5-14.0)
[2023-06-24] MEDS ORDERED: DUONEB 0.5-3 MG/3 ml Neb IH ONE (15:09)
[2023-06-24] MEDS: DUONEB 0.5-3 MG/3 ml Neb IH ONE (15:11)
--- NOTE | 2023-06-24 15:14 | XRAY ---
Indication: CHF. Comparison: May 10, 2009 Portable chest remains inflated and clear. Heart and mediastinal structures within normal limits. Bony thorax intact again with mild degenerative changes and old right 5 rib fracture. Impression: Continued nonacute chest with chronic bony findings.
[2023-06-24 15:19] VITALS: PULSE 70; RESP 20
[2023-06-24 15:31] LABS: ANION GAP 9.7 MEQ/L (5-15); BILIRUBIN,TOTAL 0.6 mg/dL (0.2-1.3); Creatinine 1 0.56 mg/dL (0.52-1.04); EST GLOMERULAR FILTRATION RATE 103.8 ML/MIN; MAGNESIUM 2.1 mg/dL (1.6-2.3); Total Protein 6.6 g/dL (6.3-8.2)
[2023-06-24 15:42] LABS: INFLUENZA A NEGATIVE (NEGATIVE); INFLUENZA B NEGATIVE (NEGATIVE); RESPIRATORY SYNCTIAL VIRUS NEGATIVE (NEGATIVE); SARS-CoV-2 Xpert Express NEGATIVE (NEGATIVE)
[2023-06-24 17:13] VITALS: O2SAT 98
[2023-06-24] MEDS: LASIX 20 MG PO STA (17:25)
== END 2023-06-24 17:25 | disposition home or self-care (01) ==
LOC: ED 14:01
DX: R60.0 Localized edema (principal); J44.9 Chronic obstructive pulmonary disease, unspecified; R07.9 Chest pain, unspecified; E78.5 Hyperlipidemia, unspecified; Z79.899 Other long term (current) drug therapy; Z28.310 Unvaccinated for COVID-19; Z72.0 Tobacco use; Z20.828 Contact with and (suspected) exposure to other viral communicable diseases
CPT/HCPCS: 0241U; 36000; 36415; 71045; 80053; 83605; 83735; 83880; 84484; 85025; 93005; 93041; 94640; 99284; A9270-GY

== ENCOUNTER 2023-10-04 13:46 | Emergency (ER) | payer MEDICARE ==
[2023-10-04 14:22] LABS: Absolute Neutrophil Ct (ANC) 5.62 x10^3/uL (1.56-6.13); BASOPHIL % 0.6 % (0.1-1.2); Basophil (Absolute #) 0.05 x10^3/uL (0.01-0.08); Eosinophil % 0.6 % (0.7-5.8); Eosinophil (Absolute #) 0.05 x10^3/uL (0.04-0.36); Hematocrit 38.5 % (34.1-44.9); Hemoglobin 12.8 g/dL (11.2-15.7); IMMATURE GRAN # 0.03 x10^3u/L (0.001-0.031); IMMATURE GRAN % 0.4 % (0.001-0.429); Lymphocyte (Absolute #) 2.05 x10^3/uL (1.18-3.74); Lymphocytes % 24.8 % (19.3-51.7); Mean Cell Volume 98.7 fL (79.4-94.8); Mean Corpuscular Hemoglobin 32.8 pg (25.6-32.2); Mean Corpuscular Hgb Concent. 33.2 g/dL (32.2-35.5); Mean Platelet Volume 9.5 fL (9.4-12.3); Monocyte (Absolute #) 0.48 x10^3/uL (0.24-0.86); Monocytes % 5.8 % (4.7-12.5); Neutrophil % 67.8 % (34.0-71.1); Platelet Count 278 x10^3/uL (182-369); White Blood Count 8.3 x10^3/uL (3.98-10.04)
[2023-10-04 14:29] VITALS: TEMP 97.8
[2023-10-04 14:38] LABS: INR 1.01 (0.8-3.0); PTT 24.7 SECONDS (25.1-36.5)
[2023-10-04 14:46] LABS: ANION GAP 8.7 MEQ/L (5-15); BILIRUBIN,TOTAL 0.8 mg/dL (0.2-1.3); Calcium 9.4 mg/dL (8.4-10.2); Creatinine 1 0.76 mg/dL (0.52-1.04); EST GLOMERULAR FILTRATION RATE 89.1 ML/MIN; MAGNESIUM 2.1 mg/dL (1.6-2.3); Total Protein 6.9 g/dL (6.3-8.2)
--- NOTE | 2023-10-04 15:06 | XRAY ---
Indication: Edema. Comparison: June 24, 2023. Portable chest remains inflated and clear. Heart and mediastinal structures within normal limits. Bony thorax intact again with mild degenerative changes and old right 5 rib fracture. Impression: Continued nonacute chest with chronic bony findings.
--- NOTE | 2023-10-04 15:42 | ERPHSYRPT ---
- History of Present Illness Historian: patient Exam Limitations: no limitations Patient Subjective Stated Complaint: PT HERE FOR SWELLING, SHE STATES SHE HAS GAINED 40 LBS IN A MONTH EVEN THOUGH PLACED LASIX. Triage Nursing Assessment: PT ALERT, WALKED IN. RESP EASY, OCC COUGH, HAS NONPITTING SWELLING TO LOWER LEGS,MOVES ALL EXT WELL Physician History: 62-year-old female with chief complaint of a 40 pound weight gain over the last 1 month with 10 pounds gained overnight. She has some right-sided chest pain which she states is 9 out of 10 and radiates to her right back and is described as stabbing. Patient has had some nausea and vomiting x 1 month. She is also dyspneic without diaphoresis. past medical history includes a heart cath with a blockage per patient, hyperlipidemia, and smokes 1 to 2 packs a day but denies diabetes mellitus and hypertension. Timing/Duration: other ( 1 month worse since last night) Quality: stabbing Location: other ( right-sided chest with radiation to her back) Severity of Pain-Max: moderate Severity of Pain-Current: moderate Modifying Factors: Improves With: other ( dyspnea worse with exertion) Associated Symptoms: nausea, vomiting, shortness of breath, No diaphoresis Nitro Today/Relief: no nitro taken today Aspirin Treatment Today: no aspirin today Allergies/Adverse Reactions: Sulfa (Sulfonamide Antibiotics) Allergy (Verified 10/04/23 14:09) unknown, "mom said" amoxicillin [From Augmentin] Adverse Reaction (Intermediate, Verified 10/04/23 14:09) yeast infection clavulanic acid [From Augmentin] Adverse Reaction (Verified 10/04/23 14:09) Itching states "had a bad yeast infection and just never wants it again" Home Medications: Albuterol 2.5 mg/3 ml Neb [Proventil 2.5 mg/3 ml Neb] 2.5 mg IH Q4HPRN PRN 02/17/19 [History] Albuterol Common Canister [Ventolin Common Canister] 2 puff IH Q4HPRN PRN 02/17/19 [History] Aspirin [Aspirin EC] 81 mg PO DAILY 02/17/19 [History] Atorvastatin Calcium [Lipitor 20MG Tablet] 40 mg PO HS 02/17/19 [History] Cholecalciferol (Vitamin D3) [D3-2000] 1 cap PO DAILY 02/17/19 [History] Omeprazole 40 mg PO DAILY 02/17/19 [History] Pregabalin 1.5 cap PO BID 01/05/20 [History] Nabumetone [Relafen] 500 mg PO BID 01/31/20 [History] Carisoprodol 350 mg [Soma 350 mg] 350 mg PO DAILY 10/04/23 [History] Carvedilol 12.5 mg [Coreg 12.5 mg] 1 ea DAILY 10/04/23 [History] Fluticasone/Umeclidin/Vilanter [Trelegy Ellipta 100-62.5-25] 1 puff DAILY 10/04/23 [History] Furosemide 20 mg [Lasix 20 mg] 60 mg PO DAILY 10/04/23 [History] Potassium Chloride 1 ea DAILY 10/04/23 [History] Pregabalin [Lyrica 75 mg Cap] 75 mg PO DAILY 10/04/23 [History] Topiramate 100 mg [Topamax 100 MG] 100 mg PO DAILY 10/04/23 [History] buPROPion HCL [Bupropion Xl] 300 mg PO DAILY 10/04/23 [History] clonazePAM [Clonazepam] 0.5 mg PO BID 10/04/23 [History] Hx Tetanus, Diphtheria Vaccination/Date Given: No Hx Influenza Vaccination/Date Given: No Hx Pneumococcal Vaccination/Date Given: Yes Immunizations Up to Date: Yes Travel Risk - International Travel Have you traveled outside of the country in past 3 weeks: No - Emerging Infectious Disease Are you exhibiting symptoms associated with any current EIDs: No - Review of Systems Constitutional: No Symptoms Eyes: No Symptoms Ears, Nose, & Throat: No Symptoms Respiratory: Dyspnea Cardiac: No Symptoms, Chest Pain Abdominal/Gastrointestinal: No Symptoms Genitourinary Symptoms: No Symptoms Musculoskeletal: No Symptoms Skin: No Symptoms Neurological: No Symptoms Psychological: No Symptoms Endocrine: No Symptoms Hematologic/Lymphatic: No Symptoms Immunological/Allergic: No Symptoms - Past Medical History Pertinent Past Medical History: Yes Neurological History: No Pertinent History ENT History: No Pertinent History Cardiac History: Coronary Artery Disease, High Cholesterol Respiratory History: Asthma, COPD Endocrine Medical History: Liver Disease Musculoskeletal History: Arthritis GI Medical History: GERD History: No Pertinent History Psycho-Social History: Anxiety, Depression Female Reproductive Disorders: Cervical Cancer Other Medical History: 30% heart block. class 3 pap smear cervical CA. cryo negative paps since. colonoscopy 2018: mild inflammation otherwise negative. umbillicul hernia. Hepititis C remission - Past Surgical History Past Surgical History: Yes Neuro Surgical History: No Pertinent History Cardiac: Cardiac Catheterization Respiratory: No Pertinent History Gastrointestinal: No Pertinent History Genitourinary: No Pertinent History Musculoskeletal: Orthopedic Surgery Female Surgical History: No Pertinent History Other Surgical History: lap cyst removal from uterus. right knee maniscus repair Significant Family History: no pertinent family hx - Social History Smoking Status: Current every day smoker How long have you smoked: 22 Exposure to second hand smoke: Yes Drug Use: none Patient Lives Alone: No - Social Determinants of Health Will the patient participate in the screening: Declined to provide - Nursing Vital Signs Nursing Vital Signs: Initial Vital Signs Temperature 97.8 F 10/04/23 14:20 Pulse Rate 68 10/04/23 14:20 Respiratory Rate 18 10/04/23 14:20 Blood Pressure 133/86 10/04/23 14:20 O2 Sat by Pulse Oximetry 98 10/04/23 14:20 Pain Scale Pain Intensity 4 within normal limit - Physical Exam General Appearance: no apparent distress Eye Exam: PERRL/EOMI, eyes nml inspection Ears, Nose, Throat Exam: normal ENT inspection, TMs normal, pharynx normal, moist mucous membranes Neck Exam: normal inspection, non-tender, supple, full range of motion, No meningismus, No mass, No Brudzinski Respiratory Exam: airway intact, other ( faint wheezes at the bases but overall clear) Cardiovascular Exam: regular rate/rhythm, normal heart sounds, normal peripheral pulses, capillary refill <2 sec, No murmur Gastrointestinal/Abdomen Exam: soft, normal bowel sounds, No tenderness Back Exam: normal inspection, normal range of motion Extremity Exam: pedal edema ( 1+ nonpitting), No calf tenderness Neurologic Exam: alert, oriented x 3, cooperative, health care manager II-XII nml as tested, normal mood/affect, nml cerebellar function, nml station & gait, sensation nml Skin Exam: normal color, warm, dry Lymphatic Exam: No adenopathy SpO2 Interpretation: normal SpO2: 98 O2 Delivery: Room Air - Course Nursing assessment & vital signs reviewed: Yes EKG Interpreted by Me: RATE (Normal sinus rhythm/rate 65/flat T waves/no acute ST segment changes/interpreted contemporaneously per ER physician.) - Radiology Exams Chest X-ray Interpretation: Reviewed by me ( Chest x-ray negative per Dr. Harp) - CT Exams Other CT Interpretation: Discussed w/radiologist ( CTA of chest negative for pulmonary embolus, old right fifth rib fracture, heart size normal) Abdomen/Pelvis CT Interpretation: Discussed w/radiologist ( CT of the abdomen pelvis with IV contrast demonstrates mild diffuse fecal stasis, small hepatic hemangioma, otherwise negative for acute process) Ordered Tests: Active Orders 24 hr Category Date Time Status EKG-ER Only STAT Care 10/04/23 15:47 Completed ABDOMEN AND PELVIS W CONTRAST [CT] Stat Exams 10/04/23 16:23 Completed CHEST 1 VIEW (PORTABLE) Stat Exams 10/04/23 14:08 Completed CHEST WITH CONTRAST [CT] Stat Exams 10/04/23 16:23 Completed CBC W DIFF Stat Lab 10/04/23 14:15 Completed CMP Stat Lab 10/04/23 14:15 Completed D-DIMER QUANTITATIVE Stat Lab 10/04/23 14:15 Completed MAGNESIUM Stat Lab 10/04/23 14:15 Completed NT PRO BNPII Stat Lab 10/04/23 14:15 Completed PROTIME WITH INR Stat Lab 10/04/23 14:15 Completed PTT Stat Lab 10/04/23 14:15 Completed TROPONIN Q4H Lab 10/04/23 14:15 Completed TROPONIN Q4H Lab 10/04/23 18:15 Completed Medication Summary Discontinued Medications Generic Name Dose Route Start Last Admin Trade Name Kyra PRN Reason Stop Dose Admin Furosemide 20 mg 10/05/23 18:27 10/04/23 18:39 Furosemide 20 Mg/Vial IV 10/05/23 18:28 20 mg STAT ONE Administration Furosemide Confirm 10/04/23 18:38 Furosemide 20 Mg/Vial Administered 10/04/23 18:39 Dose 20 mg .ROUTE .STK-MED ONE Lab/Rad Data: Laboratory Result Diagrams 10/04/23 14:15 10/04/23 14:15 Laboratory Results 10/04/23 10/04/23 10/04/23 Range/Units 18:15 14:15 14:15 WBC (3.98-10.04) x10^3/uL RBC (3.93-5.22) x10^6/uL Hgb (11.2-15.7) g/dL Hct (34.1-44.9) % MCV (79.4-94.8) fL MCH (25.6-32.2) pg MCHC (32.2-35.5) g/dL RDW (11.7-14.4) % Plt Count (182-369) x10^3/uL MPV (9.4-12.3) fL Gran % (34.0-71.1) % Immature Gran % (Auto) (0.001-0.429) % Nucleat RBC Rel Count (0.00-0.2) % Eos # (Auto) (0.04-0.36) x10^3/uL Immature Gran # (Auto) (0.001-0.031) x10^3u/L Absolute Lymphs (auto) (1.18-3.74) x10^3/uL Absolute Monos (auto) (0.24-0.86) x10^3/uL Absolute Nucleated RBC (0.00-0.012) x10^3u/L Lymphocytes % (19.3-51.7) % Monocytes % (4.7-12.5) % Eosinophils % (0.7-5.8) % Basophils % (0.1-1.2) % Absolute Granulocytes (1.56-6.13) x10^3/uL Basophils # (0.01-0.08) x10^3/uL PT (9.4-12.5) SECONDS INR (0.8-3.0) APTT (25.1-36.5) SECONDS D-Dimer 1.50 H* (0.0-0.50) mg/L Sodium (135-145) mmol/L Potassium (3.5-5.1) mmol/L Chloride (98-107) mmol/L Carbon Dioxide (22-30) mmol/L Anion Gap (5-15) MEQ/L BUN (7-17) mg/dL Creatinine (0.52-1.04) mg/dL Estimated GFR ML/MIN Glucose (74-106) mg/dL Calcium (8.4-10.2) mg/dL Magnesium (1.6-2.3) mg/dL Total Bilirubin (0.2-1.3) mg/dL AST (14-36) U/L ALT (0-35) U/L Alkaline Phosphatase (38-126) U/L Troponin I < 0.012 < 0.012 (0.000-0.033) ng/mL NT-Pro-B Natriuret Pep (<300) pg/mL Serum Total Protein (6.3-8.2) g/dL Albumin (3.5-5.0) g/dL 10/04/23 10/04/23 10/04/23 Range/Units 14:15 14:15 14:15 WBC 8.3 (3.98-10.04) x10^3/uL RBC 3.90 L (3.93-5.22) x10^6/uL Hgb 12.8 (11.2-15.7) g/dL Hct 38.5 (34.1-44.9) % MCV 98.7 H (79.4-94.8) fL MCH 32.8 H (25.6-32.2) pg MCHC 33.2 (32.2-35.5) g/dL RDW 13.0 (11.7-14.4) % Plt Count 278 (182-369) x10^3/uL MPV 9.5 (9.4-12.3) fL Gran % 67.8 (34.0-71.1) % Immature Gran % (Auto) 0.4 (0.001-0.429) % Nucleat RBC Rel Count 0.0 (0.00-0.2) % Eos # (Auto) 0.05 (0.04-0.36) x10^3/uL Immature Gran # (Auto) 0.03 (0.001-0.031) x10^3u/L Absolute Lymphs (auto) 2.05 (1.18-3.74) x10^3/uL Absolute Monos (auto) 0.48 (0.24-0.86) x10^3/uL Absolute Nucleated RBC 0.00 (0.00-0.012) x10^3u/L Lymphocytes % 24.8 (19.3-51.7) % Monocytes % 5.8 (4.7-12.5) % Eosinophils % 0.6 L (0.7-5.8) % Basophils % 0.6 (0.1-1.2) % Absolute Granulocytes 5.62 (1.56-6.13) x10^3/uL Basophils # 0.05 (0.01-0.08) x10^3/uL PT 11.0 (9.4-12.5) SECONDS INR 1.01 (0.8-3.0) APTT 24.7 L (25.1-36.5) SECONDS D-Dimer (0.0-0.50) mg/L Sodium 139 (135-145) mmol/L Potassium 4.0 (3.5-5.1) mmol/L Chloride 104 (98-107) mmol/L Carbon Dioxide 30 (22-30) mmol/L Anion Gap 8.7 (5-15) MEQ/L BUN 16 (7-17) mg/dL Creatinine 0.76 (0.52-1.04) mg/dL Estimated GFR 89.1 ML/MIN Glucose 97 (74-106) mg/dL Calcium 9.4 (8.4-10.2) mg/dL Magnesium 2.1 (1.6-2.3) mg/dL Total Bilirubin 0.80 (0.2-1.3) mg/dL AST 19 (14-36) U/L ALT 16 (0-35) U/L Alkaline Phosphatase 70 (38-126) U/L Troponin I (0.000-0.033) ng/mL NT-Pro-B Natriuret Pep 608 (<300) pg/mL Serum Total Protein 6.9 (6.3-8.2) g/dL Albumin 4.0 (3.5-5.0) g/dL all reviewed - Progress Progress: improved Air Movement: good Progress Note: 10/04/23 23:17 Nursing note and vital signs thoroughly reviewed No food or housing insecurity noted. 10/04/23 23:18 All lab results thoroughly reviewed and shared with patient. CTA of chest and CT of the abdomen pelvis with IV contrast result thoroughly reviewed and shared with patient. Although patient's BNP is mildly elevated, there is no evidence of overt congestive heart failure on her auscultatory exam, chest x-ray, or CTA of chest. Edema is possibly due to venous stasis as opposed to congestive heart failure, so 20 mg IV Lasix given the patient. there is also no evidence of acute myocardial infarction. Patient discharged in stable condition with instructions to follow-up with her PCP and/or oil filters inspector and return to ER for any chest pain, increasing shortness of breath, temperature greater 100.5, or increasing edema. 10/04/23 23:20 10/04/23 23:20 Antibiotics given: No Counseled pt/family regarding: lab results, diagnosis, need for follow-up, rad results Medical Desision Making - Diagnostic Testing Diagnostic test were ordered, analyzed, and reviewed by me: Yes Radiological Interpretation: Reviewed by me - Risk of complications The pt has a mod risk of morbidity or mortality based on: Need for prescription drug management - Departure Departure Disposition: Home Clinical Impression: Mild Chronic Congestive heart, Dependent edema Condition: Stable Critical Care Time: No Referrals: TIMOTHY REEDER MD [Primary Care Provider] - Follow up/PCP as directed Instructions: Heart Failure, Adult (DC), Dependent Edema (DC) Additional Instructions: Follow-up with your family MD and oil filters inspector soon as possible Continue current medications Return to ER for worsening chest pain, increasing shortness of breath, or increasing swelling
--- NOTE | 2023-10-04 17:11 | XRAY ---
Indication: Pulmonary embolus. Multiple contiguous images obtained through the chest using 100 cc Isovue 370 contrast and PE protocol. Comparison: None Good opacification of the pulmonary arteries to include the lobar and segmental branches. No pulmonary embolus. Heart not enlarged. Aorta is normal in course and caliber. No pathologic mediastinal/hilar lymphadenopathy. Bony thorax intact with mild degenerative changes throughout the spine and old right [address] abdomen/pelvis reported separately. Impression: Normal CT chest pulmonary embolus exam.
--- NOTE | 2023-10-04 17:14 | XRAY ---
Indication: Abdomen distention. Multiple contiguous images obtained through the abdomen and pelvis using 100 cc Isovue 370 contrast and PE protocol. Comparison: November 20, 2019 CT chest reversibly. Noncontrasted stomach and bowel loops appear nonobstructed. Normal appendix. Again mild diffuse scattered colonic fecal debris throughout, less than before. Right lobe liver demonstrates stable hemangioma near dome of the diaphragm. Again hysterectomy. No free fluid/air. Remaining liver, gallbladder, pancreas, spleen, adrenal glands, kidneys, ureters, and bladder are unremarkable. Again mild scattered aortoiliac calcifications. No AAA or pathologic retroperitoneal lymphadenopathy. Osseous structures intact again with minimal degenerative changes throughout the spine. Interval ventral hernia repair surgery. Impression: Again mild diffuse fecal stasis, small hepatic hemangioma, degenerative spondylosis, and arteriosclerotic disease. Remaining CT abdomen/pelvis with contrast exam continues to be negative.
[2023-10-04 18:10] VITALS: BP 64/43; PULSE 62; RESP 13
[2023-10-04] MEDS ORDERED: Lasix 20 MG/2 ML ONE (18:38)
[2023-10-04] MEDS: Lasix 20 MG/2 ML IV ONE (18:39)
[2023-10-04 18:42] VITALS: O2SAT 98
== END 2023-10-04 19:17 | disposition home or self-care (01) ==
LOC: ED 13:46
DX: I50.9 Heart failure, unspecified (principal); R60.9 Edema, unspecified; R07.9 Chest pain, unspecified; R11.2 Nausea with vomiting, unspecified; R06.00 Dyspnea, unspecified; Z79.899 Other long term (current) drug therapy; Z72.0 Tobacco use
CPT/HCPCS: 36000; 36415; 71045; 71260; 74177; 80053; 83735; 83880; 84484; 85025; 85379; 85610; 85730; 93005; 96374; 96375; 99284; J1940